=== PATIENT | male | born 1965 | race Caucasian/White ===

== ENCOUNTER 2018-06-11 22:15 | Observation (INO) ==
[2018-06-11 23:05] LABS: Basophils # 0.1 K/mm3 (0-0.2); Basophils % 0.6 % (0.1-2.0); Eosinophils # 0.2 K/mm3 (0.0-0.4); Eosinophils % 2.1 % (0.1-12.0); Hematocrit 47.3 % (42.0-52.0); Hemoglobin 15.7 g/dL (14.1-18.0); Lymphocytes # 2.6 K/mm3 (0.7-4.5); Lymphocytes % 28.3 K/mm3 (10-50); Mean Corpuscular HGB Conc 33.3 g/dL (31.8-35.4); Mean Corpuscular Hemoglobin 31.1 pg (27.0-31.2); Mean Corpuscular Volume 93.5 fl (80-94); Mean Platelet Volume 7.4 fl (7.4-10.4); Monocytes # 0.7 K/mm3 (0.1-1.0); Monocytes % 7.1 % (1.7-9.3); Neutrophils # 5.7 K/mm3 (1.8-7.8); Platelet Count 316 K/mm3 (142-424); Red Blood Count 5.06 M/mm3 (4.60-6.20); Red Cell Distribution Width 12.8 % (11.5-17.5); White Blood Count 9.1 K/mm3 (4.8-10.8)
[2018-06-11 23:16] LABS: Albumin Level 3.9 gm/dL (3.4-5.0); Bilirubin,Total 0.6 mg/dL (0.2-1.0); Calcium 8.8 mg/dL (8.5-10.1); Globulin 3.9 gm/dl (1.3-3.2); Total Protein,Serum 7.8 gm/dL (6.4-8.2)
--- NOTE | 2018-06-12 01:02 | Emergency Department Note ---
ED Disposition Clinical Impression: Tobacco use Abscess of skin or subcutaneous tissue Qualifiers: Site of cutaneous abscess: extremity Site of cutaneous abscess of extremity: upper extremity Laterality: left Qualified Code(s): L02.414 - Cutaneous abscess of left upper limb Diabetes mellitus Qualifiers: Diabetes mellitus type: type 1 Diabetes mellitus complication status: with unspecified complications Qualified Code(s): E10.8 - Type 1 diabetes mellitus with unspecified complications Hypothyroidism Qualifiers: Hypothyroidism type: acquired Qualified Code(s): E03.9 - Hypothyroidism, unspecified Disposition: Admitted as Observation Condition on Discharge: Good - Critical Care Critical Care Time: No Attestation: On 06/11/18, the high probability of a clinically significant, sudden or life threatening deterioration of the following system(s) required my full and direct attention, intervention and personal management. The time I documented below is in addition to time spent performing reported procedures but includes the following listed in this critical care notation. Medical Decision Making - Medical Records Medical records reviewed: Yes: I reviewed the patient's medical records. - Rj Inquiry Pt receiving controlled substance: No Vital Signs: 06/11/18 22:17 06/12/18 00:06 Temperature 98.5 F 98.5 F Temperature Source Oral Oral Pulse Rate [Right Brachial] 96 H 89 Respiratory Rate 14 18 Blood Pressure [Right Arm] 188/101 163/89 Blood Pressure Mean [Right Arm] 130 113 Blood Pressure Source [Right Arm] Automatic Cuff Blood Pressure Position [Right Arm] Supine 02 Sat by Pulse Oximetry 98 97 Oxygen Delivery Method Room Air - Lab Data Lab results reviewed: Yes: I reviewed the patient's lab results. Lab Results 06/11/18 22:45: WBC 9.1, RBC 5.06, Hgb 15.7, Hct 47.3, MCV 93.5, MCH 31.1, MCHC 33.3, RDW 12.8, Plt Count 316, MPV 7.4, Neut % (Auto) 62.0, Lymph % (Auto) 28.3, [place] % (Auto) 7.1, Eos % (Auto) 2.1, Baso % (Auto) 0.6, Neut # (Auto) 5.7, Lymph # (Auto) 2.6, [place] # (Auto) 0.7, Eos # (Auto) 0.2, Baso # (Auto) 0.1 06/11/18 22:45: Sodium 140, Potassium 4.0, Chloride 103, Carbon Dioxide 32, Anion Gap 9.0, BUN 12, Creatinine 1.03, Estimated Creat Clear 132, Estimated GFR 76, Est GFR ( Amer) 92, Glucose 313 H, Calcium 8.8, Total Bilirubin 0.6, AST 17, ALT 46, Alkaline Phosphatase 118 H, Total Protein 7.8, Albumin 3.9, Globulin 3.9 H, Albumin/Globulin Ratio 1.0 L 06/11/18 22:45: Lactate 1.7 06/11/18 22:45: ESR 17 Result diagrams: 06/11/18 22:45 06/11/18 22:45 Orders (Tests/Meds): ED MEDICATIONS Generic Name Dose Route Start Last Admin Trade Name Lorraine PRN Reason Stop Dose Admin Vancomycin HCl 2,000 mg/ 250 mls @ 125 mls/hr 06/12/18 00:41 06/12/18 00:53 Sodium Chloride IV 06/12/18 02:40 125 mls/hr ONCE ONE Administration Vancomycin HCl 1,500 mg/ 250 mls @ 125 mls/hr 06/12/18 12:45 Sodium Chloride IV 06/17/18 12:44 Q12H MARJORIE Miscellaneous 1 each 06/12/18 00:45 06/12/18 00:42 Vancomycin Consult Request * 07/12/18 00:44 1 each CONSULT PHARMACY MARJORIE Administration ORDERS Category Date Time Status Hemoglobin A1C Stat Lab 06/12/18 00:00 Received Blood Culture Stat Micro 06/11/18 22:57 Ordered Skin/Abscess/FB HPI - General Chief complaint: Skin/Abscess/Foreign Body Stated complaint: spot on arm Time Seen by Provider: 06/11/18 23:30 Mode of Arrival: Ambulatory Source of Information: Patient, Spouse, Medical Record Limitations: No Limitations Description of Symptoms (Recalled from ER Triage Doc. by RN): REPORTS A "SPOT" ON HIS LEFT FOREARM THAT DRAINED INFECTION A COUPLE WEEKS AGO. REPORTS A COUPLE DAYS AGO A NEW SPOT POPPED UP BELOW IT AND IT HAS PROGRESSIVLY GOTTEN MORE SWOLLEN, WITH REDNESS AROUND IT. REPORTS THIS PLACE HAS NOT DRAINED. REPRTS HE HAS BEEN SQUEEZING BUT NO DRAINIAGE - History of Present Illness HPI narrative: progressive swelling and tenderness to skin lesion lt forearm with no drainage but had fever and chills - he is diabetic and no hx of mrsa - MD complaint: abscess/boil Onset (ago): day(s) Tetanus up to date: unsure Location: LUE Severity: moderate Associated symptoms: fever, chills Treatments prior to arrival: attempted to drain pus at home - Related Data Home Medications Medication Instructions Recorded Confirmed gabapentin 400 mg capsule 600 mg PO TID cap 12/16/17 06/11/18 insulin glargine (U-100) 100 20 unit SUB-Q QHS ml 12/16/17 06/11/18 unit/mL (3 mL) subcutaneous pen levothyroxine 25 mcg tablet 25 mcg PO DAILY tab 12/16/17 06/11/18 losartan 50 mg tablet 50 mg PO DAILY tab 12/16/17 06/11/18 metformin ER 1,000 mg 1,000 mg PO BID tab 12/16/17 06/11/18 tablet,extended release 24hr sitagliptin 100 mg tablet 100 mg PO DAILY tab 12/16/17 06/11/18 Omeprazole [Omeprazole 40mg 40 mg PO DAILY 06/11/18 06/11/18 Capsule] Allergies Allergy/AdvReac Type Severity Reaction Status Date / Time No Known Allergies Allergy Verified 12/16/17 11:33 [facility] History I have reviewed the patient's past medical history: Yes Medical History: Reports:: Diabetes Mellitus Type 2, Gastroesophageal Reflux Disease(GERD), Hyperlipidemia, Hypertension Other Medical History: Reports: Thyroid Disease Laterality Cases: Right: Carpal Tunnel Release Other Surgeries: Yes: Colonoscopy Amputation: No Fractures: No - Social History Smoking Status: Current every day smoker Tobacco Type: cigarettes Alcohol Intake: never Substance Use Type: denies use - Psychiatric History Expresses thoughts of harming self/others: None Suicide Plan Description: No Plan Family Hx:: Cancer, Diabetes ROS Obtained: Yes All systems reviewed & no additional complaints - Constitutional Constitutional: Reports chills, Reports fever(s) - Eyes Eyes: Denies change in vision - ENT Ears, Nose, Mouth, and Throat: Denies sore throat - Cardiovascular Cardiovascular: Denies chest pain - Respiratory Respiratory: No cough - Gastrointestinal Gastrointestingal: Denies: abdominal pain - Genitourinary Male Genitourinary: Denies hematuria - Musculoskeletal Musculoskeletal: Denies joint pain, Denies joint swelling - Integumentary/Breasts Skin/Breast: Reports boil - Neurologic Neurologic: Denies seizure-like activity Physical Exam - General General appearance: alert, in no apparent distress - Head Head exam: normocephalic - Eye Eye exam: Present: PERRL, EOMI. Absent: scleral icterus - ENT ENT exam: Present: mucous membranes dry - Neck Neck exam: Present: trachea midline - Respiratory Respiratory exam: Absent: respiratory distress - Cardiovascular Cardiovascular exam: Present: regular rate - Abdominal Exam Abdominal exam: Present: soft - Expanded Upper Extremity Exam Left Forearm/Wrist exam: Present: tenderness, swelling, erythema - Neurological Exam Neurological exam: Present: alert, oriented X3, CN II-XII intact - Psychiatric Psychiatric exam: Present: normal affect - Skin Skin exam: Present: rash, other (cellulitis lt upper ext with neurovascular ok but no drainage and has tenderness and spreading induration )
[2018-06-12 06:44] LABS: Basophils # 0.1 K/mm3 (0-0.2); Basophils % 0.6 % (0.1-2.0); Eosinophils # 0.2 K/mm3 (0.0-0.4); Eosinophils % 2.3 % (0.1-12.0); Hematocrit 41.5 % (42.0-52.0); Hemoglobin 14.2 g/dL (14.1-18.0); Lymphocytes # 2.7 K/mm3 (0.7-4.5); Lymphocytes % 28.2 K/mm3 (10-50); Mean Corpuscular HGB Conc 34.1 g/dL (31.8-35.4); Mean Corpuscular Hemoglobin 31.5 pg (27.0-31.2); Mean Corpuscular Volume 92.2 fl (80-94); Mean Platelet Volume 7.6 fl (7.4-10.4); Monocytes # 0.6 K/mm3 (0.1-1.0); Monocytes % 6.3 % (1.7-9.3); Neutrophils % 62.6 % (37.0-80.0); Platelet Count 287 K/mm3 (142-424); Red Cell Distribution Width 12.9 % (11.5-17.5); White Blood Count 9.6 K/mm3 (4.8-10.8)
[2018-06-12 06:52] LABS: Anion Gap 9.8 mEq/L (5-15); Calcium 8.2 mg/dL (8.5-10.1); Potassium 3.8 mmoL/L (3.5-5.1)
[2018-06-12 07:14] LABS: Chol/HDL Ratio 4.2 (1-3.5)
--- NOTE | 2018-06-12 07:30 | Pharmacy Consult Notes ---
[facility] Pharmacy VTE Monitoring - Patient Demographics Admission date: 06/12/18 Report Date: 06/12/18 Time: 07:30 Allergies/Adverse Reactions: Patient Allergies No Known Allergies Allergy (Verified 12/16/17 11:33) Height: 1.78 m Weight: 112.689 kg Patient Problems: Current Active Problems Abscess of skin or subcutaneous tissue (Acute) Tobacco use (Acute) Diabetes mellitus (Acute) Hypothyroidism (Acute) - VTE Risk Labs: VTE Related Lab Results Hgb 14.2 g/dL (14.1-18.0) 06/12/18 06:16 Hct 41.5 % (42.0-52.0) L 06/12/18 06:16 Plt Count 287 K/mm3 (142-424) 06/12/18 06:16 BUN 12 mg/dL (7-18) 06/12/18 06:16 Creatinine 0.78 mg/dL (0.70-1.30) D 06/12/18 06:16 Estimated Creat Clear 177 mL/min (0-300) 06/12/18 06:16 Was VTE Risk Assessment Performed: Yes VTE Score: 3 VTE Risk Level: Low Risk - Prophylaxis VTE Prophylaxis Ordered?: Yes Types of VTE Prophylaxis: TEDS Knee High Location of Applied Device: Bilateral Lower Extremeties - VTE Diagnosis Confirmed Treatment or plan recommended: Continue Current Treatment
--- NOTE | 2018-06-12 09:15 | History & Physical Report ---
*Admission Date: 06/12/18 *Chief complaint: abcess *History of present illness: 53-year-old male reported to the ER with complaints of an area on left forearm that was draining a few weeks ago but cleared up now a new spot opened up just below and is progressively gotten worse with swelling in a black area in the middle with redness that extends down the arm. Patient states the area has not drained patient states he has tried to squeeze it but cannot get anything out of it. Patient admitted for IV antibiotics with PICC line placement due to the inability to obtain a culture we will treat with vancomycin. [facility] History I have reviewed the patient's past medical history: Yes Medical History: Reports:: Diabetes Mellitus Type 2, Gastroesophageal Reflux Disease(GERD), Hyperlipidemia, Hypertension Denies:: Cancer, MRSA Other Medical History: Reports: Thyroid Disease Laterality Cases: Right: Carpal Tunnel Release Other Surgeries: Yes: Colonoscopy Amputation: No Fractures: Yes - *Social History Educational Level: Attended College Smoking Status: Current every day smoker Tobacco Type: cigarettes # Packs/Day (cigarettes): 1 Alcohol Intake: former Alcohol Intake Frequency:: holidays/special occasions only Substance Use Type: denies use Occupational Status: employed Housing: house Household Members: spouse, children - Psychiatric History Expresses thoughts of harming self/others: None Suicide Plan Description: No Plan *Family Hx:: Cancer, Diabetes, Hypertension Review of Systems - Review of Systems Review of systems:: pertinent systems reviewed and negative unless documented below - Constitutional Denies headache(s) - Eyes Denies change in vision - ENT Denies change in voice - *Cardiovascular Denies chest pain with activity - *Respiratory Denies chest congestion - *Gastrointestinal Denies bloating - *Genitourinary Denies urinary urgency - *Musculoskeletal Denies stiffness - Integumentary/Breasts Reports skin ulcer, Reports other - *Neurologic Denies seizure-like activity - Psychiatric Denies anxiety - Endocrine Denies excessive sweating - Hematologic/Lymphatic Denies enlarged lymph nodes - Allergic/Immunologic Denies lip swelling Meds Home Medications Medication Instructions Recorded Confirmed Type insulin glargine (U-100) 100 24 unit SQ HS ml 12/16/17 06/12/18 History unit/mL (3 mL) subcutaneous pen levothyroxine 25 mcg tablet 25 mcg PO DAILY tab 12/16/17 06/12/18 History losartan 50 mg tablet 50 mg PO DAILY tab 12/16/17 06/12/18 History sitagliptin 100 mg tablet 100 mg PO DAILY tab 12/16/17 06/12/18 History Omeprazole [Omeprazole 40mg 40 mg PO DAILY 06/11/18 06/12/18 History Capsule] Aspirin [Children's Aspirin] 81 mg PO DAILY 06/12/18 06/12/18 History Atorvastatin Calcium [Atorvastatin 40 mg PO HS 06/12/18 06/12/18 History 40mg Tab] Gabapentin [Neurontin 600mg 600 mg PO BID 06/12/18 06/12/18 History tablet] Metformin HCl [Glucophage] 1,000 mg PO BID 06/12/18 06/12/18 History Allergies Allergy/AdvReac Type Severity Reaction Status Date / Time No Known Allergies Allergy Verified 12/16/17 11:33 Exam Vital signs and Labs for Last 24 Hours: Temp Pulse Resp BP Pulse Ox 97.3 F L 80 16 179/95 95 06/12/18 08:00 06/12/18 08:00 06/12/18 08:00 06/12/18 08:00 06/12/18 08:00 Laboratory Results - last 24 hr 06/11/18 22:45: WBC 9.1, RBC 5.06, Hgb 15.7, Hct 47.3, MCV 93.5, MCH 31.1, MCHC 33.3, RDW 12.8, Plt Count 316, MPV 7.4, Neut % (Auto) 62.0, Lymph % (Auto) 28.3, [place] % (Auto) 7.1, Eos % (Auto) 2.1, Baso % (Auto) 0.6, Neut # (Auto) 5.7, Lymph # (Auto) 2.6, [place] # (Auto) 0.7, Eos # (Auto) 0.2, Baso # (Auto) 0.1 06/11/18 22:45: Sodium 140, Potassium 4.0, Chloride 103, Carbon Dioxide 32, Anion Gap 9.0, BUN 12, Creatinine 1.03, Estimated Creat Clear 132, Estimated GFR 76, Est GFR ( Amer) 92, Glucose 313 H, Calcium 8.8, Total Bilirubin 0.6, AST 17, ALT 46, Alkaline Phosphatase 118 H, Total Protein 7.8, Albumin 3.9, Globulin 3.9 H, Albumin/Globulin Ratio 1.0 L 06/11/18 22:45: Lactate 1.7 06/11/18 22:45: ESR 17 06/12/18 00:00: Hemoglobin A1c 8.6 H 06/12/18 06:03: POC Glucose 185 H 06/12/18 06:16: WBC 9.6, RBC 4.50 L, Hgb 14.2, Hct 41.5 L, MCV 92.2, MCH 31.5 H, MCHC 34.1, RDW 12.9, Plt Count 287, MPV 7.6, Neut % (Auto) 62.6, Lymph % (Auto) 28.2, [place] % (Auto) 6.3, Eos % (Auto) 2.3, Baso % (Auto) 0.6, Neut # (Auto) 6.0, Lymph # (Auto) 2.7, [place] # (Auto) 0.6, Eos # (Auto) 0.2, Baso # (Auto) 0.1 06/12/18 06:16: Sodium 141, Potassium 3.8, Chloride 106, Carbon Dioxide 29, Anion Gap 9.8, BUN 12, Creatinine 0.78 D, Estimated Creat Clear 177, Estimated GFR 105, Est GFR ( Amer) 126 D, Glucose 187 H D, Calcium 8.2 L 06/12/18 06:16: Magnesium 1.5, Triglycerides 128, Cholesterol 92 L, LDL Cholesterol 44, VLDL Cholesterol 26, HDL Cholesterol 22 L, Cholesterol/HDL Ratio 4.2 H I & O for Last 24 hours: Intake & Output 06/09/18 06/10/18 06/11/18 06/12/18 11:59 11:59 11:59 11:59 Intake Total 1108 / 1108 Balance 1108 / 1108 Weight 248 lb 7 oz - *Routine HEENT Exam Head: Present: normocephalic Eye: Present: PERRL ENT: Present: mucous membranes moist - *Routine Neck Exam Present: supple. Absent: lymphadenopathy - *Routine Respiratory Exam Present: CTA bilaterally - *Routine Cardiovascular Exam Present: RRR - *Routine Abdominal Exam Present: soft, normoactive bowel sounds. Absent: tenderness - *Routine Extremities Exam Absent: cyanosis, clubbing, edema - *Routine Skin Exam Present: warm. Absent: rash - *Routine Neurological Exam Present: alert, oriented X3 - Detailed Skin Exam left arm Type of lesion/wound: Present: abscess Body image: 1 - red area the size of a golf ball with scab area in middle Assessment and Plan - Assessment and plan all Dx Assessment and Plan for all problems:: Rounded with Dr. Rojas all orders per Bob PICC line placement
--- NOTE | 2018-06-12 09:46 | Pharmacy Consult Notes ---
- Pharmacy Consult Date: 06/12/18 Time: 09:44 Referring provider: DR. MOE Reason for Consult:: VANCOMYCIN DOSING Allergies and ADEs:: Allergies Allergy/AdvReac Type Severity Reaction Status Date / Time No Known Allergies Allergy Verified 12/16/17 11:33 Home Medications:: Home Medications Medication Instructions Recorded Confirmed Type insulin glargine (U-100) 100 24 unit SQ HS ml 12/16/17 06/12/18 History unit/mL (3 mL) subcutaneous pen levothyroxine 25 mcg tablet 25 mcg PO DAILY tab 12/16/17 06/12/18 History losartan 50 mg tablet 50 mg PO DAILY tab 12/16/17 06/12/18 History sitagliptin 100 mg tablet 100 mg PO DAILY tab 12/16/17 06/12/18 History Omeprazole [Omeprazole 40mg 40 mg PO DAILY 06/11/18 06/12/18 History Capsule] Aspirin [Children's Aspirin] 81 mg PO DAILY 06/12/18 06/12/18 History Atorvastatin Calcium [Atorvastatin 40 mg PO HS 06/12/18 06/12/18 History 40mg Tab] Gabapentin [Neurontin 600mg 600 mg PO BID 06/12/18 06/12/18 History tablet] Metformin HCl [Glucophage] 1,000 mg PO BID 06/12/18 06/12/18 History Height: 1.78 m Weight: 112.689 kg Laboratory Results:: Laboratory Results - last 24 hr 06/11/18 22:45: WBC 9.1, RBC 5.06, Hgb 15.7, Hct 47.3, MCV 93.5, MCH 31.1, MCHC 33.3, RDW 12.8, Plt Count 316, MPV 7.4, Neut % (Auto) 62.0, Lymph % (Auto) 28.3, [place] % (Auto) 7.1, Eos % (Auto) 2.1, Baso % (Auto) 0.6, Neut # (Auto) 5.7, Lymph # (Auto) 2.6, [place] # (Auto) 0.7, Eos # (Auto) 0.2, Baso # (Auto) 0.1 06/11/18 22:45: Sodium 140, Potassium 4.0, Chloride 103, Carbon Dioxide 32, Anion Gap 9.0, BUN 12, Creatinine 1.03, Estimated Creat Clear 132, Estimated GFR 76, Est GFR ( Amer) 92, Glucose 313 H, Calcium 8.8, Total Bilirubin 0.6, AST 17, ALT 46, Alkaline Phosphatase 118 H, Total Protein 7.8, Albumin 3.9, Globulin 3.9 H, Albumin/Globulin Ratio 1.0 L 06/11/18 22:45: Lactate 1.7 06/11/18 22:45: ESR 17 06/12/18 00:00: Hemoglobin A1c 8.6 H 06/12/18 06:03: POC Glucose 185 H 06/12/18 06:16: WBC 9.6, RBC 4.50 L, Hgb 14.2, Hct 41.5 L, MCV 92.2, MCH 31.5 H, MCHC 34.1, RDW 12.9, Plt Count 287, MPV 7.6, Neut % (Auto) 62.6, Lymph % (Auto) 28.2, [place] % (Auto) 6.3, Eos % (Auto) 2.3, Baso % (Auto) 0.6, Neut # (Auto) 6.0, Lymph # (Auto) 2.7, [place] # (Auto) 0.6, Eos # (Auto) 0.2, Baso # (Auto) 0.1 06/12/18 06:16: Sodium 141, Potassium 3.8, Chloride 106, Carbon Dioxide 29, Anion Gap 9.8, BUN 12, Creatinine 0.78 D, Estimated Creat Clear 177, Estimated GFR 105, Est GFR ( Amer) 126 D, Glucose 187 H D, Calcium 8.2 L 06/12/18 06:16: Magnesium 1.5, Triglycerides 128, Cholesterol 92 L, LDL Cholesterol 44, VLDL Cholesterol 26, HDL Cholesterol 22 L, Cholesterol/HDL Ratio 4.2 H Medical History: Reports:: Diabetes Mellitus Type 2, Gastroesophageal Reflux Disease(GERD), Hyperlipidemia, Hypertension Denies:: Cancer, MRSA Assessment and Plan - Assessment and plan all Dx Assessment and Plan for all problems:: BASED ON PATIENT FACTORS, RECOMMEND VANCOMYCIN 2,250MG IV EVERY 12 HOURS. [facility] WILL OBTAIN TROUGH LEVEL PRIOR TO FOURTH DOSE AND WILL ADJUST DOSE APPROPRIATE AT THAT TIME. -HEMAL LONG, TONID
--- NOTE | 2018-06-13 11:41 | Discharge Summary ---
General - General Admission date:: 06/12/18 Discharge date: 06/13/18 HPI HPI: 53-year-old male reported to the ER with complaints of an area on left forearm that was draining a few weeks ago but cleared up now a new spot opened up just below and is progressively gotten worse with swelling in a black area in the middle with redness that extends down the arm. Patient states the area has not drained patient states he has tried to squeeze it but cannot get anything out of it. Patient admitted for IV antibiotics with PICC line placement due to the inability to obtain a culture we will treat with vancomycin. Hospital Course Hospital Course: pt has did well with iv abx and infection has responded and will continue treatment as op -pt will need 10 day course and will follow phar recomendations and have placed pic line to facilitate op care Objective Vital signs: Temp Pulse Resp BP Pulse Ox 99.2 F 88 20 179/91 95 06/13/18 08:00 06/13/18 08:00 06/13/18 08:00 06/13/18 08:00 06/13/18 08:00 no acute distress, obese - *Routine HEENT Exam Head: Present: normocephalic, atraumatic Eye: Present: EOMI, PERRL ENT: Present: mucous membranes dry - *Routine Neck Exam Absent: JVD - *Routine Respiratory Exam Present: CTA bilaterally - *Routine Cardiovascular Exam Present: RRR - *Routine Abdominal Exam Present: soft - *Routine Extremities Exam Present: full ROM - *Routine Skin Exam Comments: resolving infection lt upper ext - *Routine Neurological Exam Present: alert, oriented X3, CN II-XII intact - Routine Psychiatric Exam Present: normal affect Results Labs on day of discharge: Labs from last 24 hours 06/12/18 06/12/18 20:38 17:16 POC Glucose 237 H 181 H DS: Diagnosis - Discharge Diagnosis (1) Abscess of skin or subcutaneous tissue Status: Acute (2) Diabetes mellitus Status: Acute (3) Hypothyroidism Status: Acute (4) Tobacco use Status: Acute Discharge Plan - Patient Discharge Instructions ACTIVITY: Continue current activity DIET: continue same diet - Follow up Plan Disposition: Home, Self-Long-Term Medications: Home Medications Medication Instructions Recorded Confirmed Type insulin glargine (U-100) 100 30 unit SQ HS ml 12/16/17 06/12/18 History unit/mL (3 mL) subcutaneous pen levothyroxine 25 mcg tablet 25 mcg PO DAILY tab 12/16/17 06/12/18 History losartan 50 mg tablet 50 mg PO DAILY tab 12/16/17 06/12/18 History sitagliptin 100 mg tablet 100 mg PO DAILY tab 12/16/17 06/12/18 History Omeprazole [Omeprazole 40mg 40 mg PO DAILY 06/11/18 06/12/18 History Capsule] Aspirin [Children's Aspirin] 81 mg PO DAILY 06/12/18 06/12/18 History Atorvastatin Calcium [Atorvastatin 30 mg PO HS 06/12/18 06/12/18 History 40mg Tab] Gabapentin [Neurontin 600mg 600 mg PO BID 06/12/18 06/12/18 History tablet] Metformin HCl [Glucophage] 1,000 mg PO BID 06/12/18 06/12/18 History Prescriptions/Medication Reconciliation: New DAPTOmycin [Cubicin 500mg vial] 500 mg IV Q24H vial Gabapentin [Neurontin 600mg tablet] 600 mg PO TID tablet Metformin HCl [Metformin 500mg Tablet] 1,000 mg PO BIDWM tablet Nicotine [Nicoderm 21mg/24hr patch] 21 mg TD DAILYP PRN #30 patch.td24 PRN Reason: Nicotine Cravings Mupirocin [Bactroban 2% Ointment 22gm tube] 1 applicatio TP BID #1 tube Continue insulin glargine (U-100) 100 unit/mL (3 mL) subcutaneous pen 30 unit SQ HS ml losartan 50 mg tablet 50 mg PO DAILY tab sitagliptin 100 mg tablet 100 mg PO DAILY tab levothyroxine 25 mcg tablet 25 mcg PO DAILY tab Aspirin [Children's Aspirin] 81 mg PO DAILY Gabapentin [Neurontin 600mg tablet] 600 mg PO BID Atorvastatin Calcium [Atorvastatin 40mg Tab] 30 mg PO HS Omeprazole [Omeprazole 40mg Capsule] 40 mg PO DAILY Metformin HCl [Glucophage] 1,000 mg PO BID
== END 2018-06-13 12:04 | disposition home or self-care (01) ==
LOC: ER 22:15 → 2ND 22:15
PROVIDERS: ADMIT Emergency Medicine; ATTEND Emergency Medicine

== ENCOUNTER → 2018-06-14 10:35 | Outpatient (CLI) | payer MEDICAID, SELFPAY ==
[2018-06-14 10:35] VITALS: BP 179/93; PULSE 87; RESP 18; TEMP 36.8; O2SAT 99
[2018-06-14 10:52] VITALS: BP 192/107; PULSE 91; RESP 18; TEMP 36.8; O2SAT 99; BMI 35.6
== END ==
PROVIDERS: PCP Physician Assistant; Visit Provider Emergency Medicine
DX: L02.414 Cutaneous abscess of left upper limb (principal)
CPT/HCPCS: 96365; J0878

== ENCOUNTER → 2018-06-15 14:08 | Outpatient (CLI) | payer MEDICAID, SELFPAY ==
[2018-06-15 14:18] VITALS: BP 179/105; PULSE 92; RESP 18; TEMP 36.8; O2SAT 99; BMI 35.6
[2018-06-15 15:00] VITALS: BP 179/105; PULSE 91; RESP 18; TEMP 36.8; O2SAT 98
== END ==
PROVIDERS: PCP Physician Assistant; Visit Provider Emergency Medicine
DX: L02.414 Cutaneous abscess of left upper limb (principal)
CPT/HCPCS: 96365; J0878

== ENCOUNTER 2018-06-16 16:00 | Outpatient (CLI) | payer MEDICAID, SELFPAY ==
[2018-06-16 16:20] VITALS: BP 192/99; PULSE 74; RESP 18; TEMP 36.7; O2SAT 98
[2018-06-16 16:50] VITALS: BP 187/97; PULSE 76; RESP 18; O2SAT 96
[2018-06-16 17:10] VITALS: BP 189/94; PULSE 78; RESP 18; O2SAT 97
== END 2018-06-16 17:15 | disposition home or self-care (01) ==
LOC: INF 16:16
PROVIDERS: PCP Physician Assistant; Visit Provider Emergency Medicine
DX: L02.414 Cutaneous abscess of left upper limb (principal)
CPT/HCPCS: 96365; J0878

== ENCOUNTER 2018-06-17 15:30 | Outpatient (CLI) | payer MEDICAID, SELFPAY ==
[2018-06-17 15:33] VITALS: BP 151/86; PULSE 68; RESP 20; TEMP 37; O2SAT 96
[2018-06-17 16:25] VITALS: BP 150/74; PULSE 72; RESP 20; TEMP 36.9; O2SAT 96
== END 2018-06-17 16:29 | disposition home or self-care (01) ==
LOC: INF 15:30
PROVIDERS: PCP Emergency Medicine; Visit Provider Emergency Medicine
DX: L02.414 Cutaneous abscess of left upper limb (principal)
CPT/HCPCS: 96365; J0878

== ENCOUNTER → 2018-06-18 16:51 | Outpatient (CLI) | payer MEDICAID, SELFPAY ==
[2018-06-18 16:51] VITALS: BP 164/97; PULSE 86; RESP 15; TEMP 36.6; O2SAT 97
[2018-06-18 17:54] VITALS: BP 168/98; PULSE 64; RESP 14; TEMP 36.6; O2SAT 98
== END ==
PROVIDERS: PCP Emergency Medicine; Visit Provider Emergency Medicine
DX: L02.414 Cutaneous abscess of left upper limb (principal)
CPT/HCPCS: 96365; J0878

== ENCOUNTER 2018-06-19 15:25 | Outpatient (CLI) | payer MEDICAID, SELFPAY ==
[2018-06-19 15:50] VITALS: BP 151/81; PULSE 76; RESP 18; TEMP 36.6; O2SAT 99
[2018-06-19 16:20] VITALS: BP 154/79; PULSE 71; RESP 18; O2SAT 98
[2018-06-19 16:30] VITALS: BP 156/84; PULSE 79; RESP 18; O2SAT 97
== END 2018-06-19 16:40 | disposition home or self-care (01) ==
LOC: INF 15:34
PROVIDERS: PCP Emergency Medicine; Visit Provider Emergency Medicine
DX: L02.414 Cutaneous abscess of left upper limb (principal)
CPT/HCPCS: 96365; J0878

== ENCOUNTER 2018-06-20 16:00 | Outpatient (CLI) | payer MEDICAID, SELFPAY ==
[2018-06-20 16:00] VITALS: BP 137/75; PULSE 95; RESP 20; TEMP 36.7; O2SAT 96
[2018-06-20 16:30] VITALS: BP 137/80; PULSE 66; RESP 20; TEMP 36.9; O2SAT 98
== END 2018-06-20 16:30 | disposition home or self-care (01) ==
LOC: INF 17:44
PROVIDERS: PCP Emergency Medicine; Visit Provider Emergency Medicine
DX: L02.414 Cutaneous abscess of left upper limb (principal)
CPT/HCPCS: 96365; J0878

== ENCOUNTER → 2018-06-21 11:19 | Outpatient (CLI) | payer MEDICAID, SELFPAY ==
[2018-06-21 11:42] VITALS: BP 143/84; PULSE 97; RESP 18; TEMP 36.9; O2SAT 96; BMI 34.4
[2018-06-21 12:30] VITALS: BP 144/86; PULSE 88; RESP 18; TEMP 36.4; O2SAT 97
== END ==
PROVIDERS: PCP Emergency Medicine; Visit Provider Emergency Medicine
DX: L02.414 Cutaneous abscess of left upper limb (principal)
CPT/HCPCS: 96365; J0878

== ENCOUNTER 2018-06-23 12:00 | Outpatient (CLI) | payer MEDICAID, SELFPAY | END 2018-06-23 12:25 | disposition home or self-care (01) | LOC: INF 12:09 | PROVIDERS: PCP Emergency Medicine; Visit Provider Emergency Medicine | DX: Z45.2 Encounter for adjustment and management of vascular access device (principal); L02.91 Cutaneous abscess, unspecified | CPT/HCPCS: G0463 ==

== ENCOUNTER 2018-06-30 15:55 | Observation (INO) ==
--- NOTE | 2018-06-30 16:44 | Emergency Department Note ---
[facility] [place] Clinical Impression: Facial cellulitis, Abscess of chin Diabetes mellitus, type 2 Qualifiers: Diabetes mellitus mcfp insulin use: with intermediate project manager use Diabetes mellitus complication status: with skin complications Diabetes mellitus complication detail: with other skin complication Qualified Code(s): E11.628 - Type 2 diabetes mellitus with other skin complications; Z79.4 - intermediate project manager (current) use of insulin Hypertension Qualifiers: Hypertension type: unspecified Qualified Code(s): I10 - Essential (primary) hypertension Disposition: Admitted As Inpatient Condition on Discharge: Fair Time of Disposition: 17:20 (admit room 211) Medical Decision Making - Rj Inquiry Pt receiving controlled substance: No Vital Signs: 06/30/18 15:56 06/30/18 16:04 Temperature 98.1 F Temperature Source Temporal Artery Scan Pulse Rate [Left Radial] 106 H Respiratory Rate 16 Blood Pressure [Right Arm] 160/112 H 177/105 H Blood Pressure Mean [Right Arm] 128 129 Blood Pressure Source [Right Arm] Manual Cuff/ Auscultation Blood Pressure Position [Right Arm] Sitting 02 Sat by Pulse Oximetry 100 Oxygen Delivery Method Room Air Orders (Tests/Meds): ED MEDICATIONS Generic Name Dose Route Start Last Admin Trade Name Freq PRN Reason Stop Dose Admin Acetaminophen 650 mg 06/30/18 17:10 Acetaminophen 325mg Tab PO 07/30/18 17:09 Q4HP PRN As Needed for Fever or Pain Aspirin 81 mg 07/01/18 09:00 Aspirin 81mg Chewable Tablet PO 07/31/18 08:59 DAILY [facility] Atorvastatin Calcium 30 mg 06/30/18 21:00 Lipitor 40mg Tablet PO 07/30/18 20:59 HS [facility] Sodium Chloride 1,000 mls @ 50 mls/hr 06/30/18 17:10 Sod Chlor 0.9% 1000ml Bag IV 07/30/18 17:09 .Q20H [facility] Vancomycin HCl 1,750 mg/ 250 mls @ 125 mls/hr 06/30/18 17:10 Sodium Chloride IV 06/30/18 19:09 ONCE ONE Insulin Glargine 30 unit 06/30/18 21:00 Insulin Glargine 100 Units/Ml 3ml Flexpen SQ 07/30/18 20:59 HS [facility] Levothyroxine Sodium 25 mcg 07/01/18 09:00 Synthroid 25mcg (0.025mg) Tablet PO 07/31/18 08:59 DAILY [facility] Mupirocin gm 06/30/18 21:00 Bactroban 2% Ointment 22gm Tube TP 07/30/18 20:59 BID MARJORIE Nicotine 21 mg 06/30/18 17:10 Nicoderm 21mg/24hr Patch TD 07/30/18 17:09 DAILYP PRN Nicotine Cravings Non-Formulary Medication 50 mg 07/01/18 09:00 Losartan Potassium [Cozaar] PO 07/31/18 08:59 DAILY MARJ[facility]IE Non-Formulary Medication 1,000 mg 06/30/18 21:00 Metformin Hcl [Glucophage] PO 07/30/18 20:59 BID MARJORIE Non-Formulary Medication 40 mg 07/01/18 09:00 Omeprazole [Omeprazole 40mg Capsule] PO 07/31/18 08:59 DAILY [facility] Non-Formulary Medication 100 mg 07/01/18 09:00 Sitagliptin Phosphate [Januvia 100mg Tablet] PO 07/31/18 08:59 DAILY [facility] ORDERS Category Date Time Status Basic Metabolic Panel Stat Lab 06/30/18 17:00 Received Complete Blood Count Auto Diff Stat Lab 06/30/18 17:00 Received Lactic Acid Stat Lab 06/30/18 17:00 Received - Physician Consults Physician Consulted: Dr. Rojas, PCP Time: 16:40 Reason -: Pt condition Comment/Response: Spoke w/ Dr. Rojas. Familiar w/ pt. Discussed HPI, exam and pt's concerns and reluctance to get IM antibiotics w/ Rx for PO antibiotics and see Dr. Rojas tomorrow. Admit for observation. Restart IV Vanc. Ask Dr. Urias to place admission orders. He will see patient when he gets here later this evening. Additional Consult: Dr. Urias, ER MD Time: 16:55 Reason -: Admission Comment/Response: Discussed recent PMHx, HPI, exam, consult w/ Dr. Rojas. He is willing to place admission order for Bob knowing Bob will round and see pt this afternoon. - Reevaluation(s) Time: 16:35 Reevaluation #1: Discussed IM antibiotic and PO antibiotic prescription with follow up tomorrow. Pt hesitant and would rather have case discussed with Dr. Rojas given how significant left UE became so quickly. Pt is fearful he will need IV antibiotic and admission again. [facility] [place] - General Stated complaint: facial infection,pain Time Seen by Provider: 06/30/18 16:30 Mode of Arrival: Ambulatory Source of Information: Patient Limitations: No Limitations Description of Symptoms (Recalled from Triage Doc. by RN): left side facial swelling from area on chin HEENT Symptoms (Recalled from RN notes): Yes Resp Symptoms (Recalled from RN notes): No Skin Symptoms (Recalled from RN notes): Yes MS Symptoms (Recalled from RN notes): No Functional Status (Recalled from RN notes): wnl - History of Present Illness Provider Complaint: c/o "another abscess". Reporting started w/ abscess left FA approx 2 weeks ago. Worsened rapidly so was admitted and treated w/ IV vanc inpatient followed by PICC line and IV daptomycin outpatient. Just recently had PICC removed. Was shaving several days ago when he recalls "knicking" chin. Redness, swelling soon followed. Woke up this morning w/ swelling and pain radiating up to approx mid jawline. As day has progressed, feels pain "and sensation of swelling" radiating all the way up jawline into left ear. No known fever, aches, chills. Pt very nervous because of how fast the left arm got. Hx DM type II. FSBS today 240's when typically low to mid 100's. Hx of HTN. had been borderline 140's/90's. FU w/ Bob scheduled tomorrow to discuss if additional BP medication was going to be necessary. Pt afraid to wait until tomorrow. Pt feels BP even higher today d/t stress, fear and pain. Denies CP, vision change, SOA. Does have "mild pressure like frontal headache". - Related Data Home Medications Medication Instructions Recorded Confirmed insulin glargine (U-100) 100 30 unit SQ HS ml 12/16/17 06/20/18 unit/mL (3 mL) subcutaneous pen levothyroxine 25 mcg tablet 25 mcg PO DAILY tab 12/16/17 06/20/18 losartan 50 mg tablet 50 mg PO DAILY tab 12/16/17 06/20/18 sitagliptin 100 mg tablet 100 mg PO DAILY tab 12/16/17 06/20/18 Omeprazole [Omeprazole 40mg 40 mg PO DAILY 06/11/18 06/20/18 Capsule] Aspirin [Children's Aspirin] 81 mg PO DAILY 06/12/18 06/20/18 Atorvastatin Calcium [Atorvastatin 30 mg PO HS 06/12/18 06/20/18 40mg Tab] Gabapentin [Neurontin 600mg 600 mg PO BID 06/12/18 06/20/18 tablet] Metformin HCl [Glucophage] 1,000 mg PO BID 06/12/18 06/20/18 DAPTOmycin [Cubicin 500mg vial] 500 mg IV Q24H 06/16/18 06/20/18 Mupirocin [Bactroban 2% Ointment 1 applicatio TP BID 06/16/18 06/20/18 22gm tube] Previous Rx's Medication Instructions Recorded Nicotine [Nicoderm 21mg/24hr 21 mg TD DAILYP PRN #30 patch.td24 06/13/18 patch] Allergies Allergy/AdvReac Type Severity Reaction Status Date / Time No Known Allergies Allergy Verified 12/16/17 11:33 - Worker's Comp Is this a Worker's Comp case?: No [facility] History I have reviewed the patient's past medical history: Yes Medical History: Reports:: Diabetes Mellitus Type 2, Gastroesophageal Reflux Disease(GERD), Hyperlipidemia, Hypertension Denies:: Cancer, MRSA Other Medical History: Reports: Thyroid Disease Laterality Cases: Right: Carpal Tunnel Release Other Surgeries: Yes: Colonoscopy Amputation: No Fractures: Yes - Social History Educational Level: Completed College Smoking Status: Current every day smoker Tobacco Type: cigarettes # Packs/Day (cigarettes): 1 Alcohol Intake: never Alcohol Intake Frequency:: holidays/special occasions only Substance Use Type: denies use Occupational Status: employed Housing: house Household Members: spouse, children - Psychiatric History Expresses thoughts of harming self/others: None Suicide Plan Description: No Plan Family Hx:: Cancer, Diabetes, Hypertension ROS Obtained: Yes Systems reviewed as appropriate & no additional complaints - Constitutional Constitutional: Reports as per HPI, Denies poor appetite - Eyes Eyes: Reports as per HPI, Denies eye pain, Denies other (eye swelling) - ENT Ears, Nose, Mouth, and Throat: Denies difficulty swallowing, Denies ear discharge, Reports otalgia (left), Denies sinus pain, Denies sore throat - Cardiovascular Cardiovascular: Reports as per HPI, Denies irregular heart rhythm - Respiratory Respiratory: Yes as per HPI - Gastrointestinal Gastrointestingal: Denies: abdominal pain, nausea - Genitourinary Male Genitourinary: Denies difficulty urinating - Musculoskeletal Musculoskeletal: Denies joint pain, Denies limited range of motion - Integumentary/Breasts Skin/Breast: Reports as per HPI, Denies other (drainage) - Neurologic Neurologic: Reports as per HPI, Denies dizziness, Denies weakness Physical Exam - General General appearance: alert, in no apparent distress, obese - Head Head exam: normal inspection - Eye Eye exam: Present: normal appearance - ENT ENT exam: Present: normal oropharynx, mucous membranes moist, TM's normal bilaterally, normal external ear exam (visually popeye but tenderness w/ exam on left) - Expanded ENT Exam Nasal speculum exam: Bilateral: normal Mouth exam: Present: normal external inspection, tongue normal. Absent: lip swelling Teeth exam: Absent: gingival swelling Throat exam: Present: other (uvula midline and unremarkable). Absent: tonsillar erythema, tonsillomegaly, tonsillar exudate, muffled voice Comment: see skin for chin - Neck Neck exam: Present: full ROM, tenderness. Absent: lymphadenopathy - Chest Chest inspection: Present: symmetric chest wall rise - Respiratory Respiratory exam: Absent: respiratory distress - Cardiovascular Cardiovascular exam: Present: regular rate - Extremities Exam Extremities exam: Present: other (moving all extremities) - Neurological Exam Neurological exam: Present: alert, oriented X3 - Psychiatric Psychiatric exam: Present: normal affect (very pleasant) - Skin Skin exam: Present: warm, dry - Expanded Skin Exam Type of lesion: Present: abscess (approx 2cm x 2cm chin, firm, tender, scabbed center w/ no drainage) 1 - (square) cutaneous abscess 2 - mild swelling, marked tenderness along left mandible/anterior cervical region; no erythema noted (oval) - Lymphatic Lymphatic Findings: no adenopathy
[2018-06-30 17:20] LABS: Anion Gap 12.3 mEq/L (5-15); Calcium 9.4 mg/dL (8.5-10.1); Potassium 4.3 mmoL/L (3.5-5.1)
[2018-06-30 17:24] LABS: Basophils # 0.1 K/mm3 (0-0.2); Basophils % 0.5 % (0.1-2.0); Eosinophils # 0.2 K/mm3 (0.0-0.4); Eosinophils % 1.9 % (0.1-12.0); Hematocrit 50.9 % (42.0-52.0); Hemoglobin 16.9 g/dL (14.1-18.0); Lymphocytes # 2.7 K/mm3 (0.7-4.5); Lymphocytes % 22.1 K/mm3 (10-50); Mean Corpuscular HGB Conc 33.2 g/dL (31.8-35.4); Mean Corpuscular Hemoglobin 30.9 pg (27.0-31.2); Mean Corpuscular Volume 93.1 fl (80-94); Mean Platelet Volume 7.4 fl (7.4-10.4); Monocytes # 0.6 K/mm3 (0.1-1.0); Monocytes % 5.2 % (1.7-9.3); Neutrophils # 8.5 K/mm3 (1.8-7.8); Neutrophils % 70.5 % (37.0-80.0); Platelet Count 337 K/mm3 (142-424); Red Blood Count 5.46 M/mm3 (4.60-6.20); Red Cell Distribution Width 12.7 % (11.5-17.5)
--- NOTE | 2018-06-30 21:09 | History & Physical Report ---
*Admission Date: 06/30/18 *Chief complaint: facial infection *History of present illness: this wm who has iddm and recent had cellulitis of upper ext and had iv abx per pic line and has been off abx x 1 week presents to [facility] with spreading facial cellulitis and was admitted for iv abx [facility] History I have reviewed the patient's past medical history: Yes Medical History: Reports:: Diabetes Mellitus Type 2, Gastroesophageal Reflux Disease(GERD), Hyperlipidemia, Hypertension Denies:: Cancer, Diabetes Mellitus Type 1, MRSA Other Medical History: Reports: Thyroid Disease Laterality Cases: Right: Carpal Tunnel Release Other Surgeries: Yes: Colonoscopy Amputation: No Fractures: Yes - *Social History Educational Level: Completed College Smoking Status: Current every day smoker Tobacco Type: cigarettes # Packs/Day (cigarettes): 1 Alcohol Intake: never Alcohol Intake Frequency:: holidays/special occasions only Substance Use Type: denies use Occupational Status: employed Housing: house Household Members: spouse, children - Psychiatric History Expresses thoughts of harming self/others: None Suicide Plan Description: No Plan *Family Hx:: Cancer, Diabetes, Hypertension Review of Systems - Review of Systems Review of systems:: pertinent systems reviewed and negative unless documented below - Constitutional Denies fever(s) - Eyes Denies change in vision - ENT Denies sinus pressure - *Cardiovascular Denies chest pain at rest - *Respiratory Denies cough - *Gastrointestinal Denies abdominal pain - *Genitourinary Denies blood in urine - *Musculoskeletal Denies joint pain, Denies neck pain - Integumentary/Breasts Reports redness, Reports other (facial cellulitis ) - *Neurologic Denies dizziness, Denies weakness - Psychiatric Denies anxiety Meds Home Medications Medication Instructions Recorded Confirmed Type insulin glargine (U-100) 100 30 unit SQ HS ml 12/16/17 06/30/18 History unit/mL (3 mL) subcutaneous pen levothyroxine 25 mcg tablet 25 mcg PO DAILY tab 12/16/17 06/30/18 History losartan 50 mg tablet 50 mg PO DAILY tab 12/16/17 06/30/18 History sitagliptin 100 mg tablet 100 mg PO DAILY tab 12/16/17 06/30/18 History Omeprazole [Omeprazole 40mg 40 mg PO DAILY 06/11/18 06/30/18 History Capsule] Aspirin [Children's Aspirin] 81 mg PO DAILY 06/12/18 06/30/18 History Atorvastatin Calcium [Atorvastatin 30 mg PO HS 06/12/18 06/30/18 History 40mg Tab] Gabapentin [Neurontin 600mg 600 mg PO BID 06/12/18 06/30/18 History tablet] Metformin HCl [Glucophage] 1,000 mg PO BID 06/12/18 06/30/18 History Mupirocin [Bactroban 2% Ointment 1 applicatio TP BID 06/16/18 06/30/18 History 22gm tube] Allergies Allergy/AdvReac Type Severity Reaction Status Date / Time No Known Allergies Allergy Verified 12/16/17 11:33 Exam Vital signs and Labs for Last 24 Hours: Temp Pulse Resp BP Pulse Ox 98.6 F 101 H 18 120/80 93 L 06/30/18 19:56 06/30/18 19:56 06/30/18 19:56 06/30/18 19:56 06/30/18 19:56 Laboratory Results - last 24 hr 06/30/18 17:00: WBC 12.0 H, RBC 5.46, Hgb 16.9, Hct 50.9, MCV 93.1, MCH 30.9, MCHC 33.2, RDW 12.7, Plt Count 337, MPV 7.4, Neut % (Auto) 70.5, Lymph % (Auto) 22.1, Sutton % (Auto) 5.2, Eos % (Auto) 1.9, Baso % (Auto) 0.5, Neut # (Auto) 8.5 H, Lymph # (Auto) 2.7, Sutton # (Auto) 0.6, Eos # (Auto) 0.2, Baso # (Auto) 0.1 06/30/18 17:00: Sodium 137, Potassium 4.3, Chloride 99, Carbon Dioxide 30, Anion Gap 12.3, BUN 11, Creatinine 0.87, Estimated Creat Clear 158, Estimated GFR 92, Est GFR ( Amer) 111, Glucose 265 H, Calcium 9.4 06/30/18 17:00: Lactate 1.8 I & O for Last 24 hours: Intake & Output 06/28/18 06/29/18 06/30/18 07/01/18 11:59 11:59 11:59 11:59 Weight 248 lb - Constitutional no acute distress - *Routine HEENT Exam Head: Present: normocephalic Eye: Present: EOMI, PERRL ENT: Present: mucous membranes dry - *Routine Neck Exam Present: supple - *Routine Respiratory Exam Present: CTA bilaterally - *Routine Cardiovascular Exam Present: RRR. Absent: murmur - *Routine Abdominal Exam Present: soft - *Routine Extremities Exam Present: full ROM - *Routine Skin Exam Present: rash (cellulitis chin with induration and reddness lt facial and mandibular area ) - *Routine Neurological Exam Present: alert, oriented X3, CN II-XII intact - Routine Psychiatric Exam Present: normal affect Assessment and Plan (1) Diabetes mellitus Current visit: No Status: Acute Qualifiers: Diabetes mellitus type: type 1 Diabetes mellitus complication status: with unspecified complications Qualified Code(s): E10.8 - Type 1 diabetes mellitus with unspecified complications Category: Medical Code(s): E11.9 - Type 2 diabetes mellitus without complications (2) Facial cellulitis Current visit: Yes Status: Acute Category: Medical Code(s): L03.211 - Cellulitis of face
--- NOTE | 2018-07-01 07:47 | Pharmacy Consult Notes ---
[facility] Pharmacy VTE Monitoring - Patient Demographics Admission date: 06/30/18 Report Date: 07/01/18 Time: 07:47 Allergies/Adverse Reactions: Patient Allergies No Known Allergies Allergy (Verified 12/16/17 11:33) Height: 1.78 m Weight: 112.491 kg Patient Problems: Current Active Problems Facial cellulitis (Acute) Diabetes mellitus, type 2 (Acute) Abscess of chin (Acute) Hypertension (Acute) - VTE Risk Labs: VTE Related Lab Results Hgb 16.9 g/dL (14.1-18.0) 06/30/18 17:00 Hct 50.9 % (42.0-52.0) 06/30/18 17:00 Plt Count 337 K/mm3 (142-424) 06/30/18 17:00 BUN 11 mg/dL (7-18) 06/30/18 17:00 Creatinine 0.87 mg/dL (0.70-1.30) 06/30/18 17:00 Estimated Creat Clear 158 mL/min (0-300) 06/30/18 17:00 VTE Score: 1 - Prophylaxis VTE Prophylaxis Ordered?: Yes Types of VTE Prophylaxis: TEDS Knee High Location of Applied Device: Bilateral Lower Extremeties - VTE Diagnosis Confirmed Treatment or plan recommended: Continue Current Treatment
--- NOTE | 2018-07-01 09:35 | Pharmacy Consult Notes ---
- Pharmacy Consult Date: 07/01/18 Time: 09:30 Referring provider: DR. MOE Reason for Consult:: VANCOMYCIN DOSING Allergies and ADEs:: Allergies Allergy/AdvReac Type Severity Reaction Status Date / Time No Known Allergies Allergy Verified 12/16/17 11:33 Home Medications:: Home Medications Medication Instructions Recorded Confirmed Type insulin glargine (U-100) 100 24 unit SQ HS ml 12/16/17 07/01/18 History unit/mL (3 mL) subcutaneous pen levothyroxine 25 mcg tablet 25 mcg PO DAILY tab 12/16/17 06/30/18 History losartan 50 mg tablet 50 mg PO DAILY tab 12/16/17 06/30/18 History sitagliptin 100 mg tablet 100 mg PO DAILY tab 12/16/17 06/30/18 History Omeprazole [Omeprazole 40mg 40 mg PO DAILY 06/11/18 06/30/18 History Capsule] Aspirin [Children's Aspirin] 81 mg PO DAILY 06/12/18 06/30/18 History Atorvastatin Calcium [Atorvastatin 40 mg PO HS 06/12/18 07/01/18 History 40mg Tab] Gabapentin [Neurontin 600mg 600 mg PO BID 06/12/18 06/30/18 History tablet] Metformin HCl [Glucophage] 1,000 mg PO BID 06/12/18 06/30/18 History Mupirocin [Bactroban 2% Ointment 1 applicatio TP BID 06/16/18 06/30/18 History 22gm tube] Height: 1.78 m Weight: 112.491 kg Laboratory Results:: Laboratory Results - last 24 hr 06/30/18 17:00: WBC 12.0 H, RBC 5.46, Hgb 16.9, Hct 50.9, MCV 93.1, MCH 30.9, MCHC 33.2, RDW 12.7, Plt Count 337, MPV 7.4, Neut % (Auto) 70.5, Lymph % (Auto) 22.1, Maverick % (Auto) 5.2, Eos % (Auto) 1.9, Baso % (Auto) 0.5, Neut # (Auto) 8.5 H, Lymph # (Auto) 2.7, Ma[place]ick # (Auto) 0.6, Eos # (Auto) 0.2, Baso # (Auto) 0.1 06/30/18 17:00: Sodium 137, Potassium 4.3, Chloride 99, Carbon Dioxide 30, Anion Gap 12.3, BUN 11, Creatinine 0.87, Estimated Creat Clear 158, Estimated GFR 92, Est GFR ( Amer) 111, Glucose 265 H, Calcium 9.4 06/30/18 17:00: Lactate 1.8 06/30/18 19:54: POC Glucose 256 H 07/01/18 06:12: POC Glucose 158 H Medical History: Reports:: Diabetes Mellitus Type 2, Gastroesophageal Reflux Disease(GERD), Hyperlipidemia, Hypertension Denies:: Cancer, Diabetes Mellitus Type 1, MRSA Assessment and Plan (1) Diabetes mellitus Current visit: No Status: Acute Qualifiers: Diabetes mellitus type: type 1 Diabetes mellitus complication status: with unspecified complications Qualified Code(s): E10.8 - Type 1 diabetes mellitus with unspecified complications Category: Medical Code(s): E11.9 - Type 2 diabetes mellitus without complications (2) Facial cellulitis Current visit: Yes Status: Acute Category: Medical Code(s): L03.211 - Cellulitis of face - Assessment and plan all Dx Assessment and Plan for all problems:: BASED ON PATIENT'S FACTORS, RECOMMEND CONTINUING WITH VANCOMYCIN 2250 MG Q12H STARTING AT THIS AM. WILL OBTAIN TROUGH LEVEL IN AM PRIOR TO THE DOSE. PHARMACY WILL FOLLOW DAILY AND ADJUST APPROPRIATE. FANY LEROY, TONID
--- NOTE | 2018-07-02 08:45 | Progress Note ---
Internal Medicine - PN: Subj *Date: 07/01/18 *Time: 08:00 Interval history: pt with some improvement to reddness - Exam Vital signs and Labs for Last 24 Hours: Temp Pulse Resp BP Pulse Ox 97.8 F 99 H 18 160/78 H 95 07/02/18 07:12 07/02/18 07:12 07/02/18 07:12 07/02/18 07:12 07/02/18 07:12 Laboratory Results - last 24 hr 07/01/18 11:21: POC Glucose 255 H 07/01/18 17:09: POC Glucose 238 H 07/01/18 20:03: POC Glucose 235 H 07/02/18 06:43: POC Glucose 214 H 07/02/18 07:55: Vancomycin Trough 10.8 I & O for Last 24 hours: Intake & Output 06/29/18 06/30/18 07/01/18 07/02/18 11:59 11:59 11:59 11:59 Intake Total 1480 / 1480 240 / 240 Balance 1480 / 1480 240 / 240 Weight 248 lb Microbiology Reports for the Last 24 Hours: Microbiology 07/01/18 08:11 Face Gram Stain - Final 07/01/18 08:11 Face Wound Culture - Preliminary Gram Positive Cocci - Constitutional no acute distress - *Routine HEENT Exam Head: Present: normocephalic Eye: Present: EOMI, PERRL ENT: Present: mucous membranes dry - *Routine Neck Exam Present: supple - *Routine Respiratory Exam Present: CTA bilaterally - *Routine Cardiovascular Exam Present: RRR - *Routine Abdominal Exam Present: soft - *Routine Extremities Exam Absent: calf tenderness - *Routine Skin Exam Present: intact - *Routine Neurological Exam Present: alert, CN II-XII intact - Routine Psychiatric Exam Present: normal affect Assessment and Plan (1) Diabetes mellitus Current visit: No Status: Acute Qualifiers: Diabetes mellitus type: type 1 Diabetes mellitus complication status: with unspecified complications Qualified Code(s): E10.8 - Type 1 diabetes mellitus with unspecified complications Category: Medical Code(s): E11.9 - Type 2 diabetes mellitus without complications (2) Facial cellulitis Current visit: Yes Status: Acute Category: Medical Code(s): L03.211 - Cellulitis of face
--- NOTE | 2018-07-02 12:01 | Discharge Summary ---
General - General Admission date:: 06/30/18 Discharge date: 07/02/18 HPI HPI: this wm who has iddm and recent had cellulitis of upper ext and had iv abx per pic line and has been off abx x 1 week presents to [facility] with spreading facial cellulitis and was admitted for iv abx Hospital Course Hospital Course: pt with improvement with iv abx and has drainage from chin lesions - pt has pending cult results from gram pos - glu ok and no fever - blood cult ok - will await culture result and give vancomycin tonight Objective Vital signs: Temp Pulse Resp BP Pulse Ox 97.8 F 99 H 18 160/78 H 95 07/02/18 07:12 07/02/18 07:12 07/02/18 07:12 07/02/18 07:12 07/02/18 07:12 no acute distress - *Routine HEENT Exam Head: Present: normocephalic Eye: Present: EOMI, PERRL ENT: Present: mucous membranes dry - *Routine Neck Exam Present: supple - *Routine Respiratory Exam Present: CTA bilaterally - *Routine Cardiovascular Exam Present: RRR - *Routine Abdominal Exam Present: soft - *Routine Extremities Exam Present: full ROM - *Routine Skin Exam Comments: quarter sized area chin with drainage - no def abscess - *Routine Neurological Exam Present: alert, oriented X3, CN II-XII intact - Routine Psychiatric Exam Present: normal affect Results Labs on day of discharge: Labs from last 24 hours 07/02/18 07/02/18 07/01/18 07:55 06:43 20:03 POC Glucose 214 H 235 H Vancomycin Trough 10.8 07/01/18 17:09 POC Glucose 238 H Vancomycin Trough Preliminary micro results at discharge 07/01/18 08:11 Wound Culture - Preliminary Face Gram Positive Cocci DS: Diagnosis - Discharge Diagnosis (1) Diabetes mellitus Status: Acute (2) Facial cellulitis Status: Acute Discharge Plan - Patient Discharge Instructions ACTIVITY: Continue current activity DIET: continue same diet - Follow up Plan Disposition: Home, Self-Retirement Medications: Home Medications Medication Instructions Recorded Confirmed Type insulin glargine (U-100) 100 24 unit SQ HS ml 12/16/17 07/01/18 History unit/mL (3 mL) subcutaneous pen levothyroxine 25 mcg tablet 25 mcg PO DAILY tab 12/16/17 06/30/18 History losartan 50 mg tablet 50 mg PO DAILY tab 12/16/17 06/30/18 History sitagliptin 100 mg tablet 100 mg PO DAILY tab 12/16/17 06/30/18 History Omeprazole [Omeprazole 40mg 40 mg PO DAILY 06/11/18 06/30/18 History Capsule] Aspirin [Children's Aspirin] 81 mg PO DAILY 06/12/18 06/30/18 History Atorvastatin Calcium [Atorvastatin 40 mg PO HS 06/12/18 07/01/18 History 40mg Tab] Gabapentin [Neurontin 600mg 600 mg PO BID 06/12/18 06/30/18 History tablet] Metformin HCl [Glucophage] 1,000 mg PO BID 06/12/18 06/30/18 History Mupirocin [Bactroban 2% Ointment 1 applicatio TP BID 06/16/18 06/30/18 History 22gm tube] Prescriptions/Medication Reconciliation: New Sulfamethoxazole/Trimethoprim [Bactrim DS tablet] 1 each PO BID #14 tablet Minocycline HCl 100 mg PO BID #20 tablet Continue Aspirin [Children's Aspirin] 81 mg PO DAILY Atorvastatin Calcium [Atorvastatin 40mg Tab] 40 mg PO HS No Action insulin glargine (U-100) 100 unit/mL (3 mL) subcutaneous pen 24 unit SQ HS ml losartan 50 mg tablet 50 mg PO DAILY tab sitagliptin 100 mg tablet 100 mg PO DAILY tab levothyroxine 25 mcg tablet 25 mcg PO DAILY tab Gabapentin [Neurontin 600mg tablet] 600 mg PO BID Nicotine [Nicoderm 21mg/24hr patch] 21 mg TD DAILYP PRN #30 patch.td24 PRN Reason: Nicotine Cravings Mupirocin [Bactroban 2% Ointment 22gm tube] 1 applicatio TP BID Omeprazole [Omeprazole 40mg Capsule] 40 mg PO DAILY Metformin HCl [Glucophage] 1,000 mg PO BID
== END 2018-07-02 13:20 | disposition home or self-care (01) ==
LOC: 2ND 15:55 → UTC 15:55 → 2ND 17:30
PROVIDERS: ADMIT Emergency Medicine; ATTEND Emergency Medicine

== ENCOUNTER → 2018-11-06 15:54 | Outpatient (CLI) | payer MEDICAID, SELFPAY | PROVIDERS: PCP Physician Assistant; Visit Provider Physician Assistant | DX: G47.33 Obstructive sleep apnea (adult) (pediatric) (principal) | CPT/HCPCS: 95806 ==

== ENCOUNTER → 2019-01-21 12:39 | Outpatient (CLI) | payer MEDICAID, SELFPAY | PROVIDERS: PCP Emergency Medicine; Visit Provider Specialist | DX: G47.33 Obstructive sleep apnea (adult) (pediatric) (principal) | CPT/HCPCS: 94762 ==

== ENCOUNTER → 2019-02-13 12:40 | Outpatient (CLI) | payer MEDICAID, SELFPAY ==
[2019-02-13 14:36] LABS: Alanine Aminotransferase 48 U/L (12-78); Albumin Level 3.7 gm/dL (3.4-5.0); Albumin/Globulin Ratio 1.1 (1.1-1.8); Alkaline Phosphatase 105 U/L (46-116); Aspartate Amino Transferase 20 U/L (15-37); Bilirubin,Total 0.6 mg/dL (0.2-1.0); Blood Urea Nitrogen 12 mg/dL (7-18); Calcium 9.4 mg/dL (8.5-10.1); Carbon Dioxide 30 mmol/L (21.0-32.0); Chloride 98 mmol/L (98-107); Chol/HDL Ratio 4.9 (1-3.5); Cholesterol 107 mg/dL (140-200); Creatinine,Serum 0.77 mg/dL (0.70-1.30); Estimated Glomerular Filt Rate 106 ml/min (>60); GFR (African American) 128 ML/MIN (>60); Globulin 3.4 gm/dl (1.3-3.2); Glucose 233 mg/dL (74-106); HDL Cholesterol 22 mg/dL (27-67); LDL Cholesterol 58 mg/dL (0-130); Sodium 138 mmol/L (136-145); Total Protein,Serum 7.1 gm/dL (6.4-8.2); Triglycerides 136 mg/dL (30-200); VLDL Cholesterol 27 mg/dL (0-40)
== END ==
PROVIDERS: Visit Provider Internal Medicine Endocrinology, Diabetes & Metabolism
DX: E11.9 Type 2 diabetes mellitus without complications (principal); Z79.84 Long term (current) use of oral hypoglycemic drugs
CPT/HCPCS: 36415; 80053; 80061; 84443

== ENCOUNTER → 2020-04-18 09:48 | Outpatient (CLI) | payer OTHER, SELFPAY ==
[2020-04-18 11:43] LABS: Chloride 98 mmol/L (98-107); Potassium 4.5 mmoL/L (3.5-5.1); Sodium 140 mmol/L (136-145)
[2020-04-18 11:45] LABS: Blood Urea Nitrogen 13 mg/dl (9-20)
[2020-04-18 11:46] LABS: Alanine Aminotransferase 43 U/L (12-78); Albumin Level 4.3 g/dl (3.5-5.0); Albumin/Globulin Ratio 1.6 (1.1-1.8); Alkaline Phosphatase 81 U/L (38-126); Anion Gap 15.5 mEq/L (5-15); Aspartate Amino Transferase 33 U/L (17-59); Bilirubin,Total 0.6 mg/dl (0.2-1.3); Carbon Dioxide 31 mmol/L (22.0-30.0); Cholesterol 106 mg/dl (140-200); Estimated Glomerular Filt Rate 101 ml/min (>60); GFR (African American) 122 ML/MIN (>60); Globulin 2.7 g/dL (1.3-3.2); Triglycerides 157 mg/dl (30-150); VLDL Cholesterol 31 mg/dL (0-40)
[2020-04-18 11:47] LABS: Calcium 9.5 mg/dl (8.4-10.2); Chol/HDL Ratio 4.1 (1-3.5); Glucose 179 mg/dl (74-100); HDL Cholesterol 26 mg/dl (40-60)
[2020-04-18 11:58] LABS: Direct LDL Cholesterol 60.31 mg/dL (100-129)
[2020-04-18 12:05] LABS: Free T4 (Free Thyroxine) 1.14 ng/dl (0.78-2.19)
[2020-04-18 12:17] LABS: Thyroid Stimulating Hormone 2.77 uIU/mL (0.465-4.68)
== END ==
PROVIDERS: Visit Provider Internal Medicine Endocrinology, Diabetes & Metabolism
DX: E11.9 Type 2 diabetes mellitus without complications (principal); Z79.4 Long term (current) use of insulin
CPT/HCPCS: 36415; 80053; 80061; 82043; 84439; 84443

== ENCOUNTER → 2020-05-17 16:43 | Outpatient (CLI) | payer OTHER, SELFPAY ==
[2020-05-17 21:26] LABS: Chol/HDL Ratio 3.9 (1-3.5); Cholesterol 105 mg/dl (140-200); HDL Cholesterol 27 mg/dl (40-60); Triglycerides 206 mg/dl (30-150); VLDL Cholesterol 41 mg/dL (0-40)
[2020-05-17 21:40] LABS: Hemoglobin A1C 7.7 % (4.0-6.0)
[2020-05-17 22:56] LABS: Prostate Specific Ag Screen 0.3 ng/ml (0.0-4.0)
== END ==
PROVIDERS: Visit Provider Family Medicine
DX: Z12.5 Encounter for screening for malignant neoplasm of prostate (principal); E11.9 Type 2 diabetes mellitus without complications; B95.8 Unspecified staphylococcus as the cause of diseases classified elsewhere; L02.91 Cutaneous abscess, unspecified
CPT/HCPCS: 80061; 83036; 87070; 87077; 87186; 87205; G0103

== ENCOUNTER 2020-08-26 17:43 | Emergency (ER) | payer OTHER, SELFPAY ==
[2020-08-26 17:55] VITALS: BP 160/90; PULSE 98; RESP 20; O2SAT 97; BMI 33.0
--- NOTE | 2020-08-26 18:03 | HMH.EDUTC ---
[facility] [place] Clinical Impression: Exposure to COVID-19 virus Sinusitis Qualifiers: Sinusitis location: unspecified location Chronicity: acute Recurrence: non-recurrent Qualified Code(s): J01.90 - Acute sinusitis, unspecified Disposition: Home, Self-Care Condition on Discharge: Good Instructions: Sinusitis, DI for Sinusitis, Preventing the Spread of Coronavirus Discharge Instructions Additional Instructions: Drink plenty of fluids. Take tylenol for pain or fever. Return if you begin to have difficulty breathing. Follow up with your regular doctor. GO TO THE ER FOR ANY WORSENING SYMPTOMS Prescriptions: Azithromycin [Z-Alexander 250mg Tab*] 250 mg PO UD DOSE PK #6 tab Transmission Status: Pending to [facility] Referrals: Ghazala Gomez PA [Primary Care Provider] - Time of Disposition: 18:14 Medical Decision Making - Medical Records Medical records reviewed: No: I reviewed the patient's medical records. - Rj Inquiry Pt receiving controlled substance: No Vital Signs: 08/26/20 17:55 Pulse Rate [Radial] 98 H Respiratory Rate 20 Blood Pressure [Right Arm] 160/90 H Blood Pressure Mean [Right Arm] 113 Blood Pressure Source [Right Arm] Automatic Cuff Blood Pressure Position [Right Arm] Sitting 02 Sat by Pulse Oximetry 97 Oxygen Delivery Method Room Air Orders (Tests/Meds): ORDERS Category Date Time Status Covid-19 Nasal PCR ([facility]) Routine Lab 08/26/20 17:47 Ordered [facility] [place] - General Stated complaint: covid test Time Seen by Provider: 08/26/20 18:05 Mode of Arrival: Ambulatory Source of Information: Patient Limitations: No Limitations Description of Symptoms (Recalled from Triage Doc. by RN): covid test, runny nose, scratchy throat, cough, covid exposure. HEENT Symptoms (Recalled from RN notes): Yes Resp Symptoms (Recalled from RN notes): No Skin Symptoms (Recalled from RN notes): No MS Symptoms (Recalled from RN notes): No Functional Status (Recalled from RN notes): wnl - History of Present Illness Provider Complaint: He states that for the past 3 days he has had a sinus congestion and nasal drainage. He was exposed to covid at this job earlier this week. - Related Data Home Medications Medication Instructions Recorded Confirmed insulin glargine 100 unit/mL (3 24 unit SQ HS ml 12/16/17 07/05/20 mL) subcutaneous pen levothyroxine 25 mcg tablet 25 mcg PO DAILY tab 12/16/17 07/05/20 sitagliptin 100 mg tablet 100 mg PO DAILY tab 12/16/17 07/05/20 Aspirin [Children's Aspirin] 81 mg PO DAILY 06/12/18 07/05/20 Atorvastatin Calcium [Lipitor 40mg 40 mg PO HS 06/12/18 07/05/20 Tab] Metformin HCl [Glucophage] 1,000 mg PO BID 06/12/18 07/05/20 gabapentin 600 mg tablet 600 mg PO TID tab 10/01/19 07/05/20 ertugliflozin 5 mg tablet 5 mg PO DAILY 10/30/19 07/05/20 blood sugar diagnostic See Rx Instructions .ROUTE 05/17/20 07/05/20 .MEDSUPPLY #10 each blood-glucose meter See Rx Instructions .ROUTE 05/17/20 07/05/20 .MEDSUPPLY #1 each lancets 33 gauge See Rx Instructions .ROUTE 05/17/20 07/05/20 .MEDSUPPLY #100 each Previous Rx's Medication Instructions Recorded omeprazole 40 mg capsule,delayed 40 mg PO DAILY #90 cap 09/25/19 release Ondansetron [Zofran 4mg ODT] 4 mg PO Q8HP PRN #10 tab.rapdis 10/15/19 sulfacetamide sodium 10 % eye drops 1 drp OPHTHALMIC Q4H 7 Days #5 ml 10/30/19 sulfamethoxazole 800 1 tab PO BID #30 tab 05/17/20 mg-trimethoprim 160 mg tablet losartan 50 mg-hydrochlorothiazide See Rx Instructions .ROUTE 08/10/20 12.5 mg tablet .COMPLEX #90 tab Azithromycin [Z-Alexander 250mg Tab*] 250 mg PO UD DOSE PK #6 tab 08/26/20 Allergies Allergy/AdvReac Type Severity Reaction Status Date / Time No Known Allergies Allergy Verified 07/05/20 11:03 - Worker's Comp Is this a Worker's Comp case?: No [facility] History - Hepatitis A Screen Drug use history?: No High risk sexual behaviors?: No History of sexually transmitte
[2020-08-26 18:21] VITALS: BP 160/90; PULSE 98; RESP 18; TEMP 36.7; O2SAT 97
== END 2020-08-26 18:22 | disposition home or self-care (01) ==
PROVIDERS: Emergency Provider Nurse Practitioner Family; PCP Physician Assistant
DX: Z20.828 Contact with and (suspected) exposure to other viral communicable diseases (principal); J01.90 Acute sinusitis, unspecified; E11.9 Type 2 diabetes mellitus without complications; E78.5 Hyperlipidemia, unspecified; K21.9 Gastro-esophageal reflux disease without esophagitis; E03.9 Hypothyroidism, unspecified; F17.210 Nicotine dependence, cigarettes, uncomplicated; Z79.899 Other long term (current) drug therapy; Z79.84 Long term (current) use of oral hypoglycemic drugs
CPT/HCPCS: 99201; U0003

== ENCOUNTER → 2021-07-20 07:48 | Outpatient (CLI) | payer OTHER, SELFPAY ==
[2021-07-20 09:17] LABS: Alanine Aminotransferase 45 U/L (12-78); Albumin Level 4.6 g/dl (3.5-5.0); Albumin/Globulin Ratio 1.6 (1.1-1.8); Alkaline Phosphatase 96 U/L (38-126); Anion Gap 15.4 mEq/L (5-15); Aspartate Amino Transferase 40 U/L (17-59); Bilirubin,Total 0.6 mg/dl (0.2-1.3); Blood Urea Nitrogen 14 mg/dl (9-20); Carbon Dioxide 32 mmol/L (22.0-30.0); Chloride 101 mmol/L (98-107); Chol/HDL Ratio 4.8 (1-3.5); Cholesterol 119 mg/dl (140-200); Estimated Glomerular Filt Rate 100 ml/min (>60); GFR (African American) 121 ML/MIN (>60); Globulin 2.9 g/dL (1.3-3.2); Glucose 151 mg/dl (74-100); HDL Cholesterol 25 mg/dl (40-60); Potassium 5.4 mmoL/L (3.5-5.1); Sodium 143 mmol/L (136-145); Total Protein,Serum 7.5 g/dl (6.3-8.2); Triglycerides 165 mg/dl (30-150); VLDL Cholesterol 33 mg/dL (0-40)
[2021-07-20 09:42] LABS: Direct LDL Cholesterol 63.11 mg/dL (100-129)
[2021-07-20 09:47] LABS: Free T4 (Free Thyroxine) 1.21 ng/dl (0.78-2.19)
[2021-07-20 10:00] LABS: Thyroid Stimulating Hormone 3.62 uIU/mL (0.465-4.68)
== END ==
PROVIDERS: PCP Physician Assistant; Visit Provider Nurse Practitioner Family
DX: E11.40 Type 2 diabetes mellitus with diabetic neuropathy, unspecified (principal); E03.9 Hypothyroidism, unspecified; Z79.4 Long term (current) use of insulin
CPT/HCPCS: 36415; 80053; 80061; 83036; 84439; 84443

== ENCOUNTER → 2022-05-09 08:33 | Outpatient (CLI) | payer OTHER, SELFPAY ==
[2022-05-09 09:42] LABS: Chloride 102 mmol/L (98-107); Sodium 139 mmol/L (136-145)
[2022-05-09 09:43] LABS: Potassium 4.5 mmoL/L (3.5-5.1)
[2022-05-09 09:45] LABS: Alanine Aminotransferase 47 U/L (12-78); Alkaline Phosphatase 87 U/L (38-126); Anion Gap 9.5 mEq/L (5-15); Aspartate Amino Transferase 48 U/L (17-59); Bilirubin,Total 0.5 mg/dl (0.2-1.3); Blood Urea Nitrogen 19 mg/dl (9-20); Carbon Dioxide 32 mmol/L (22.0-30.0); Estimated Glomerular Filt Rate 100 ml/min (>60); GFR (African American) 121 ML/MIN (>60)
[2022-05-09 09:46] LABS: Albumin Level 4.5 g/dl (3.5-5.0); Albumin/Globulin Ratio 1.9 (1.1-1.8); Calcium 9.4 mg/dl (8.4-10.2); Chol/HDL Ratio 4.4 (1-3.5); Cholesterol 109 mg/dl (140-200); Globulin 2.4 g/dL (1.3-3.2); Glucose 133 mg/dl (74-100); HDL Cholesterol 25 mg/dl (40-60); Total Protein,Serum 6.9 g/dl (6.3-8.2); Triglycerides 140 mg/dl (30-150); VLDL Cholesterol 28 mg/dL (0-40)
[2022-05-09 09:59] LABS: Hemoglobin A1C 8.2 % (4.0-6.0)
[2022-05-09 10:02] LABS: Free T4 (Free Thyroxine) 1.05 ng/dl (0.78-2.19)
[2022-05-10 09:13] LABS: Direct LDL Cholesterol 60 mg/dL (100-129)
== END ==
PROVIDERS: PCP Physician Assistant; Visit Provider Nurse Practitioner Family
DX: E11.40 Type 2 diabetes mellitus with diabetic neuropathy, unspecified (principal); Z79.4 Long term (current) use of insulin
CPT/HCPCS: 36415; 80053; 80061; 83036; 84439; 84443

== ENCOUNTER 2022-12-07 22:28 | Emergency (ER) | payer OTHER, SELFPAY ==
[2022-12-07 22:35] VITALS: BP 161/90; PULSE 98; RESP 15; TEMP 36.4; O2SAT 99; BMI 21.5
[2022-12-07 23:00] VITALS: BP 138/72; PULSE 78; O2SAT 96
--- NOTE | 2022-12-07 23:12 | HMH.EDSKAF ---
Discharge Plan Disposition Patient Disposition: Home, Self-Care Prescriptions Prescriptions: New minocycline 100 mg Capsule 100 mg PO BID Qty: 20 0RF No Action albuterol sulfate [Proventil HFA] 90 mcg/actuation HFA aerosol inhaler 2 puff IH Q6H PRN (Reason: shortness of breath or wheezing) Qty: 8.5 0RF Rx Instructions: administer with spacer (DME) blood-glucose meter Misc See Rx Instructions .ROUTE .MEDSUPPLY Qty: 1 Label Comments: USE TO TEST BLOOD SUGAR DIRECTED Rx Instructions: As directed (DME) blood sugar diagnostic Strip See Rx Instructions .ROUTE .MEDSUPPLY Qty: 10 Label Comments: USE TO TEST BLOOD SUGAR 1 TIME EACH DAY Rx Instructions: As directed (DME) lancets 33 gauge misc See Rx Instructions .ROUTE .MEDSUPPLY Qty: 100 Label Comments: USE TO TEST BLOOD SUGAR 1 TIME EACH DAY Rx Instructions: As directed Lantus Solostar U-100 Insulin 100 unit/mL (3 mL) insulin pen 10 unit SQ HS Qty: 15 2RF Rx Instructions: Inject 38-41 units depending, sliding scale. metformin 1,000 mg tablet 1,000 mg PO BID Qty: 180 3RF gabapentin 600 mg tablet 600 mg PO TID Qty: 90 2RF albuterol sulfate 1.25 mg/3 mL solution for nebulization 1.25 mg IH QID PRN (Reason: shortness of breath or wheezing) Qty: 90 0RF atorvastatin 40 mg tablet 40 mg PO HS Qty: 90 3RF omeprazole 40 mg capsule,delayed release(DR/EC) See Rx Instructions .ROUTE .COMPLEX Rx Instructions: TAKE 1 CAPSULE 1 TIME EACH DAY FOR REFLUX levothyroxine 25 mcg tablet See Rx Instructions .ROUTE .COMPLEX Rx Instructions: TAKE 1 TABLET 1 TIME EACH DAY FOR THYROID aspirin 81 mg tablet,chewable See Rx Instructions .ROUTE .COMPLEX Rx Instructions: CHEW AND SWALLOW 1 TABLET 1 TIME EACH DAY FOR HEART HEALTH losartan-hydrochlorothiazide 50-12.5 mg tablet See Rx Instructions .ROUTE .COMPLEX Rx Instructions: TAKE 1 TABLET 1 TIME EACH DAY FOR BLOOD PRESSURE Steglatro 15 mg tablet 15 mg PO DAILY Ozempic 1 mg/dose (4 mg/3 mL) pen injector 1 mg SQ WEEKLY Referrals Follow up/Referrals: Ghazala Gomez PA [Primary Care Provider] - See instructions Clinical Impressions Clinical Impression: Tick bite Instructions Patient Instructions: Protect Yourself from Tickborne Illnesses Discharge ED Provider: Bob (ED)Raj Skin/Abscess/FB HPI General Chief complaint: Skin/Abscess/Foreign Body Stated complaint: tick in side, redness and swelling Time Seen by Provider: 12/07/22 23:12 Mode of Arrival: Family Vehicle Source of Information: Patient and Medical Record Limitations: No Limitations Description of Symptoms (Recalled from ER Triage Doc. by RN): 57 YO MALE PRESENTS WITH CHIEF COMPLAINT SKIN IRRITATION FROM TICK BITE. PATIENT STATES HE INCIDENTALLY HIT SOMETHING AGAINST THE RIGHT SIDE RIB AREA AND NOTICED IT TO BE EXCEEDINGLY TENDER UPON CONTACT. WHEN HE LOOKED AT THE AREA, HE NOTICED A TICK ATTACHED TO HIS SKIN, AND AFTER REMOVING NOTED THAT IT WAS IRRITATED, RED, AND PAINFUL. AFEBRILE. CURRENTLY NOT ON ANY ANTIBIOTICS OR IMMUNOSUPPRESSANTS. PMH: DIABETES, HYPERTENSION History of Present Illness HPI narrative: removed tick rt costal area tonight with reddness - uncertain to how long tick present - brought tick in looked like small deer tick - no fever or viral like sx complaint: other (tick bite ) Onset (ago): hour(s) Location: chest Severity: mild Associated symptoms: denies other symptoms Related Data Home Medications Medication Instructions Recorded Confirmed blood sugar diagnostic #10 05/17/20 12/07/22 blood-glucose meter #1 05/17/20 12/07/22 lancets 33 gauge #100 05/17/20 12/07/22 aspirin 81 mg chewable tablet See Rx Instructions .Route 12/07/22 12/07/22 .COMPLEX ANTIPLATELET ertugliflozin 15 mg tablet 15 mg PO DAILY Diabetes 12/07/22 12/07/22 (Steglatro) levot
[2022-12-07 23:32] VITALS: BP 156/70; PULSE 79; RESP 19; TEMP 36.7; O2SAT 99
== END 2022-12-07 23:37 | disposition home or self-care (01) ==
PROVIDERS: Emergency Provider Emergency Medicine; PCP Physician Assistant
DX: R22.2 Localized swelling, mass and lump, trunk (principal); W57.XXXA Bitten or stung by nonvenomous insect and other nonvenomous arthropods, initial encounter
CPT/HCPCS: 99283; 99284

== ENCOUNTER → 2022-12-10 13:59 | Outpatient (CLI) | payer OTHER, SELFPAY | PROVIDERS: PCP Physician Assistant; Visit Provider Physician Assistant | DX: I49.1 Atrial premature depolarization (principal); I49.3 Ventricular premature depolarization; I49.8 Other specified cardiac arrhythmias; R94.31 Abnormal electrocardiogram [ECG] [EKG] | CPT/HCPCS: 36415; 84439; 93225; 93226 ==

== ENCOUNTER 2022-12-11 06:06 | Day surgery (SDC) | payer OTHER, SELFPAY ==
[2022-12-11] VITALS (11 sets, daily range): BP systolic 104–162; BP diastolic 59–117; PULSE 79–96; RESP 16–20; TEMP 36.2; O2SAT 95–99; BMI 29.8
--- NOTE | 2022-12-11 06:07 | NM_ITS ---
APPROVED REPORT Exam: Nuclear Stress Test Indication: DYSRHYTHMIA, HTN, DM, HYPERLIPIDEMIA, TOB USE, FM HX, C.P., PALPITAIONS Patient Location: Outpatient Stress Tech: [facility] Tech:Peg Marcano, ARRJany RT (R)(N)(M) Ht: 5 ft 11 in Wt: 208 lbs HR: 84 bpm BP: 175/61 mmHg BSA: 2.14 m2 TID: 1.30 BMI: 29.0 History: DYSRHYTHMIA, HTN, DM, HYPERLIPIDEMIA, TOB USE, FM HX, C.P., PALPITAIONS Procedure: Patient exercised on Zuhair protocol 6:00 minutes and sec, resting heart rate 84 bpm, resting blood pressure 175/61 mmHg, with exercise maximum heart rate achived was 155 bpm which is 96 % of the maximum predicted heart rate and blood pressure was 148/80 mmHg. Test was stopped due to soa, chest tightness. Patient has Adequate exercise capacity, achieved 7.0 METs of workload on treadmill, the blood pressure response to exercise was Abnormal. Electrocardiogram Resting electrocardiogram shows sinus rhythm with exercise there is [address] segment depression noted from the baseline EKG. The EKG portion of the exercise Myoview is positive for ischemia. Cardiac Stress and Resting SPECT Images: Cardiac Stress and Resting SPECT images were obtained using technetium 99m Myoview 31.3 mCi stress and 10.17 mCi at rest. Gated SPECT analysis of segmental wall motion and calculation of the ejection fraction also done. Prone images were also obtained. Cardiac stress and rest SPECT images showed a large area of partially reversible defect involving the anterior, anterior apical, apex and anteroseptal wall, consistent with mixed ischemia and scar, there is transient ischemic dilatation of the left ventricle seen, computer derived ejection fraction is 17% with mild hypokinesis involving the anterior, anterior apical, apex and anteroseptal wall. Right ventricle is mildly enlarged with normal contractility. Conclusion: 1. The EKG portion of the exercise Myoview is positive for ischemia, patient has adequate exercise capacity achieved 7 METS of workload on treadmill, the blood pressure response to exercise was abnormal, patient complained of chest tightness with exercise. 2. Scintigraphic evidence of large area of mixed ischemia and scar involving the anterior, anterior apical, apex and anteroseptal wall, there is transient ischemic dilatation of the left ventricle seen raising the concern for presence of multivessel coronary artery disease, computer derived ejection fraction of 17% with segmental wall motion abnormality as described above, right ventricle is mildly enlarged with normal contractility. 3. Abnormal exercise Myoview study. Electronically signed by : Joe Barton MD 12/11/2022 17:07:12
--- NOTE | 2022-12-11 06:07 | CA_ITS ---
APPROVED REPORT EXAM: Comprehensive 2D, Doppler, and color-flow Echocardiogram Embedded Systems Engineer: Swati Garcia, RCS, RVS Ht: 5 ft 10 in Wt: 208lbs BSA: 2.12 BP: 140/75 mmHg Indications: Bigrminy of PVC's, Abn EKG, HTN 2D Dimensions IVSd 1.13 cm LVEF (Visual) 66.30 % PWd 0.96 cm LVDd 4.63 cm LVDs 2.94 cm Aortic Root 3.04 cm Left Atrium 3.82 cm LVOT 2.12 cm (M/F) 1.5-2.5 M-Mode Dimensions RVDd 2.72 cm (0.9-2.6) LA Diam 4.17 cm (1.9-4.0) LVDd 5.06 cm (3.5-5.7) Ao Diam 2.77 cm (2.0-3.7) LVDs 3.32 cm (3.5-5.7) IVSd 1.15 cm (0.6-1.1) PWd 0.98 cm (0.6-1.1) EF (Teich) 63.20% EPSs 0.47 cm FS 34.40% EDV (Teich) 121.60 mL TAPSE 2.14 (<1.7) ESV (Teich) 44.80 mL LV Diastology E Decel Time 223.00 (160-240 msec) E/A Ratio 0.81 MED E' 5.70 (< 7 cm/sec) MED A' 8.30 cm/s E'/MED E' Ratio 14.46 (>14) LAT E' 7.10 (<10 cm/sec) LAT A' 9.70 cm/s E/LAT E' Ratio 11.61 (>14) Aortic Valve LVOT Max 117.00 (70-110 cm/s) LVOT VTI 24.66 cm AoV Peak Abhi. 128.00 (50-130 cm/s) AO Peak GR. 6.50 mmHg AO Mean GR. 3.20 (<5 mmHg) AO VTI 24.94 (18-25 cm) AYE (VTI) 3.49 (2.5-4.5 cm2) Mitral Valve MV A Velocity 102.00 (40-130 cm/s) E/A Ratio 0.81 MV Decel. Time 223.00 (160-240 ms) MV PHT 78.00 ms Pulmonary Valve PV Peak Velocity 107.00 (50-150 cm/s) Left Ventricle Left atrium is mildly enlarged, left ventricle is normal size mild concentric left ventricular hypertrophy, estimated ejection fraction approximately 30%, there is marked hypokinesis involving mid to distal septum, anterior, anterior apical and apical wall. Lateral wall is also moderately hypokinetic. Grade 1 diastolic dysfunction seen without tissue Doppler evidence of raise left atrial pressure. Right Ventricle Right atrium and right ventricle are normal size and contractility. Aortic Valve Aortic valve is minimally thickened and calcified without aortic stenosis aortic insufficiency. Mitral Valve Mitral valve is has mitral annular calcification, there is no mitral stenosis, there is mild mitral regurgitation. Tricuspid Valve Tricuspid valve grossly normal, there is mild tricuspid regurgitation, tricuspid regurgitation jet velocity is inadequate for calculation of the right ventricular systolic pressure. Pulmonic Valve Pulmonic valve is poorly visualized. Great Vessels Aortic root is normal size. Inferior vena cava normal size with normal inspiratory collapse. Pericardium No significant pericardial effusion noted. Conclusion 1. Mildly enlarged atrium, normal left ventricular size mild concentric left ventricular hypertrophy, estimated ejection fraction 30% with multiple segmental wall motion abnormality described above, grade 1 diastolic dysfunction seen without tissue Doppler evidence of late left atrial pressure. 2. Mild mitral and tricuspid regurgitation. 3. No significant pericardial effusion. Inferior vena cava is normal size with normal inspiratory Electronically signed by : Joe Barton MD 12/11/2022 18:59:06
--- NOTE | 2022-12-11 06:07 | CA_ITS ---
APPROVED REPORT Exam: Exercise Treadmill Technologist: Marianna Flores Ht: 5 ft 10 in Wt: 208 lbs BSA: 2.12 m2 HR: 84 bpm BP: 175/61 mmHg Medical History Medications: Omeprazole,,,,, Levothyroxine,,,,, Aspirin,,,,, Metformin,,,,, Gabapentin,,,,, Atorvastatin,,,,, LanTUS Solostar,,,,, Toprol XL,,,,, MiNOCYCLINE,,,,, Losartan-HCTZ,,,,, Ozempic,,,,, SteGLATo,,,,, Stress Test Details Test: Zuhair HR Resting HR: 88 bpm Max Heart Rate (APMHR): 164.981775 bpm Max HR Achieved: 157 bpm Target HR (85% APMHR): 139.268167 bpm % of APMHR: 95.73 Recovery HR: 102 bpm BP Resting BP: 168.0/72.0 mmHg Max BP: 203.0/102.0 mmHg Recovery BP: 160.0/68.0 mmHg ECG Resting ECG: Normal sinus rhythm, frequent PVCs in a bigeminal pattern Clinical Exercise duration: 06:01 min Highest Stage Achieved: Exercise capacity: 7.0 METs Stress ECG Conclusion Patient exercised 6:00 on Zuhair Protocol. Test stopped due to shortness of air, fatigue. Symptoms: Mild chest tightness and discomfort between the scapula. Arrhythmias/Ectopy: Frequent PVCs and occasional Ventricular couplets which diminished significantly during exercise. ST-T Changes: T wave inversion in leads I and aVL approximately 1 mm of J point elevation in lead V2. NS ST depression inferiorly and laterally in recovery. Conclusion: Chest discomfort and EKG changes of unclear significance. Myoview images reported separately. Test Summary REST . . . . . . . Standing REST 04:31 0.0 0.0 88 . 168/ 72 . . Stage 1 01:00 10.0 1.7 103 . . . . Stage 1 02:00 10.0 1.7 116 . . . . Stage 1 03:00 10.0 1.7 126 . 150/ 76 . . Stage 2 01:00 12.0 2.5 144 . . . . Stage 2 02:00 12.0 2.5 152 . . . . Stage 2 03:00 12.0 2.5 156 . 148/ 80 . . Stage 3 00:01 14.0 3.4 156 . . . Stop exercise at 06:01 RECOVERY 01:00 0.0 0.0 139 . . . . RECOVERY 02:00 0.0 0.0 125 . . . . RECOVERY 03:00 0.0 0.0 112 . 203/102 . . RECOVERY 04:00 0.0 0.0 105 . 202/104 . . RECOVERY 05:00 0.0 0.0 110 . 202/104 . . RECOVERY 06:00 0.0 0.0 101 . 202/104 . . RECOVERY 07:00 0.0 0.0 103 . 182/ 79 . . RECOVERY 08:00 0.0 0.0 102 . 160/ 68 . . RECOVERY 08:35 0.0 0.0 96 . 160/ 68 . . Electronically signed by : Joe Barton MD 12/11/2022 17:02:10
--- NOTE | 2022-12-11 10:08 | IR_ITS ---
APPROVED REPORT Patient Location: Outpatient Director Of Volunteer Services: TAY Tee RT (R) PROCEDURES Left heart catheterization Left ventriculogram Selective coronary angiogram INDICATION High risk abnormal Myoview, Systolic congestive heart failure ejection fraction 17%, Ventricular ectopy Informed consent was obtained prior to the procedure. COMPLICATIONS None Estimated Blood Loss: Less than 10 mls TECHNIQUE One percent lidocaine used to anesthetize the right anterior aspect of the wrist. The right radial artery was accessed via the Seldinger technique. A 6 Vincentian sheath was placed in the right radial artery. 150 mg magnesium sulfate, 800 mcg of nitroglycerin, 1mg Lidocaine and 5000 U Heparin were given through the arterial sheath. The papa catheter and 6 Vincentian JR 3 catheter were also used to perform left heart catheterization, left ventriculogram and selective coronary angiogram. At the end of the procedure the sheath was removed good hemostasis was achieved using Traclet band, patient was transferred to the postop holding area in stable condition. ANGIOGRAPHIC RESULTS The left main artery Normal The left anterior descending artery Proximally occluded. The midportion of the LAD is collateralized through septal perforators which then backfill a moderate-sized diagonal artery. The caliber of the mid LAD and diagonal artery is small however this may represent underfilling of the vessel. The distal portion of the LAD appears to be subtotally occluded and is also collateralized from the distal right coronary artery. The distal LAD is extremely small The circumflex artery Gives rise to a moderate sized ramus intermedius which has proximal 60 and 70% stenoses. The circumflex artery is nondominant and yet still a large vessel and has mid vessel 70 to 80% stenoses. The terminal obtuse marginal artery has proximal and mid vessel tandem 90% stenosis The right coronary artery Is a large dominant vessel and has proximal 50 and 60% stenoses with mid vessel 40% stenoses. A large posterior descending artery has a proximal concentric 80% stenosis while the distal vessel has 70 and 90% stenosis The ROSE ventriculogram reveals Are you ventriculogram reveals dilated ventricle with severe global hypokinesis estimate ejection fraction less than 30% The left ventricular end-diastolic pressure 20 mmHg IMPRESSION Coronary disease as described above Reduced ejection fraction Borderline elevated LVEDP PLAN 1. Start carvedilol 3.125 mg p.o. twice daily and plan to double the carvedilol this and follow-up 2. Increase atorvastatin from 40 a day to 80 mg daily 3. Discontinue losartan HCT and start losartan 50 mg twice daily 4. Schedule cardiac MRI with gadolinium at [facility] and determine myocardial viability 5. Immediate avoidance of tobacco products 6. Placement of LifeVest within the next 48 hours 7. If anterior wall is viable we will refer patient to [facility] for consideration of bypass surgery 8. AICD in 90 days if ejection fraction remains 35% or less Electronically signed by : Willard Pa MD 12/11/2022 13:38:12
[2022-12-11 11:11] LABS: Basophils # 0.1 K/mm3 (0-0.2); Basophils % 1.1 % (0.1-2.0); Eosinophils # 0.3 K/mm3 (0.0-0.4); Hematocrit 53.5 % (42.0-52.0); Hemoglobin 17.8 g/dL (14.1-18.0); Lymphocytes # 2.2 K/mm3 (0.7-4.5); Lymphocytes % 23.8 % (10-50); Mean Corpuscular HGB Conc 33.2 g/dL (31.8-35.4); Mean Corpuscular Hemoglobin 32.2 pg (27.0-31.2); Mean Corpuscular Volume 97.1 fl (80-94); Mean Platelet Volume 8.1 fl (7.4-10.4); Monocytes # 0.5 K/mm3 (0.1-1.0); Monocytes % 5.4 % (1.7-9.3); Neutrophils # 6.1 K/mm3 (1.8-7.8); Neutrophils % 66.7 % (37.0-80.0); Platelet Count 299 K/mm3 (142-424); Red Blood Count 5.51 M/mm3 (4.60-6.20); Red Cell Distribution Width 13.1 % (11.5-17.5); White Blood Count 9.1 K/mm3 (4.8-10.8)
[2022-12-11 11:17] LABS: Chloride 95 mmol/L (98-107); Potassium 3.9 mmoL/L (3.5-5.1); Sodium 134 mmol/L (136-145)
[2022-12-11 11:20] LABS: Anion Gap 13.9 mEq/L (5-15); Blood Urea Nitrogen 17 mg/dl (9-20); Carbon Dioxide 29 mmol/L (22.0-30.0); Creatinine Clearance Estimated 122 mL/min (50-200); Estimated Glomerular Filt Rate 87 ml/min (>60); GFR (African American) 106 ML/MIN (>60)
[2022-12-11 11:21] LABS: Calcium 8.8 mg/dl (8.4-10.2); Glucose 170 mg/dl (74-100)
== END 2022-12-11 15:10 | disposition home or self-care (01) ==
LOC: RAD 15:10 → CATHLAB 12-12 10:22
PROVIDERS: Internal Medicine; PCP Physician Assistant; Visit Provider Physician Assistant
DX: I49.1 Atrial premature depolarization (principal); I50.20 Unspecified systolic (congestive) heart failure; I25.10 Atherosclerotic heart disease of native coronary artery without angina pectoris; I11.0 Hypertensive heart disease with heart failure; E78.5 Hyperlipidemia, unspecified; E03.9 Hypothyroidism, unspecified; I49.3 Ventricular premature depolarization; Z79.4 Long term (current) use of insulin; E11.9 Type 2 diabetes mellitus without complications; Z79.899 Other long term (current) drug therapy
CPT/HCPCS: 78452; 80048; 85025; 93017; 93306; 93458; 99152; A9502; C1725; C1769; J1644; Q9967

== ENCOUNTER → 2023-01-23 12:28 | Outpatient (CLI) | payer OTHER, SELFPAY ==
--- NOTE | 2023-01-23 12:32 | CT_ITS ---
FINAL REPORT TECHNIQUE: Axial images were obtained through the chest without contrast. This study was performed with techniques to keep radiation doses as low as reasonably achievable (ALARA). Individualized dose reduction techniques using automated exposure control or adjustment of mA and/or kV according to the patient's size were employed. CLINICAL HISTORY: CAD, hx recent heart attack , scheduled for open heart surgery on 02/16/23 FINDINGS: There are densely calcified coronary arteries. The lungs are clear. The heart size is normal. There is no pericardial or pleural effusion. Limited images of the upper abdomen reveal multiple small stones in the gallbladder. There is a small periampullary duodenal diverticulum well seen on image 89 of series 2. No suspicious infiltrate or nodule identified. IMPRESSION: No acute cardiopulmonary process. Cholelithiasis. Reviewed, Interpreted and Dictated by Elpidio Land MD Transcribed by Janey Goodman Authenticated and . [facility]
== END ==
PROVIDERS: PCP Physician Assistant; Visit Provider Thoracic Surgery (Cardiothoracic Vascular Surgery)
DX: I25.10 Atherosclerotic heart disease of native coronary artery without angina pectoris (principal)
CPT/HCPCS: 71250

== ENCOUNTER → 2023-04-15 13:33 | Outpatient (CLI) | payer OTHER, SELFPAY | LOC: RT 13:34 | PROVIDERS: PCP Physician Assistant; Visit Provider Internal Medicine | DX: I25.10 Atherosclerotic heart disease of native coronary artery without angina pectoris (principal); I11.0 Hypertensive heart disease with heart failure; I50.20 Unspecified systolic (congestive) heart failure; I49.1 Atrial premature depolarization; I49.3 Ventricular premature depolarization; I49.8 Other specified cardiac arrhythmias; E11.9 Type 2 diabetes mellitus without complications; R94.31 Abnormal electrocardiogram [ECG] [EKG]; Z72.0 Tobacco use; Z95.1 Presence of aortocoronary bypass graft; Z95.810 Presence of automatic (implantable) cardiac defibrillator; Z79.4 Long term (current) use of insulin | CPT/HCPCS: 93308 ==

== ENCOUNTER → 2023-04-29 10:01 | Outpatient (CLI) | payer OTHER, SELFPAY ==
[2023-04-29 10:33] LABS: Basophils % 0.5 % (0.1-2.0); Eosinophils # 0.2 K/mm3 (0.0-0.4); Eosinophils % 3.1 % (0.1-12.0); Hemoglobin 14.4 g/dL (14.1-18.0); Lymphocytes # 2.2 K/mm3 (0.7-4.5); Mean Corpuscular HGB Conc 31.9 g/dL (31.8-35.4); Mean Corpuscular Hemoglobin 28.8 pg (27.0-31.2); Mean Corpuscular Volume 90.1 fl (80-94); Mean Platelet Volume 8.7 fl (7.4-10.4); Monocytes # 0.4 K/mm3 (0.1-1.0); Monocytes % 5.9 % (1.7-9.3); Neutrophils # 3.9 K/mm3 (1.8-7.8); Neutrophils % 57.6 % (37.0-80.0); Platelet Count 264 K/mm3 (142-424); Red Blood Count 4.99 M/mm3 (4.60-6.20); Red Cell Distribution Width 14.8 % (11.5-17.5); White Blood Count 6.8 K/mm3 (4.8-10.8)
[2023-04-29 11:18] LABS: Alanine Aminotransferase 37 U/L (12-78); Albumin Level 4.4 g/dl (3.5-5.0); Alkaline Phosphatase 98 U/L (38-126); Anion Gap 11.4 mEq/L (5-15); Aspartate Amino Transferase 40 U/L (17-59); Bilirubin,Indirect 0.6 mg/dL (0.0-0.9); Bilirubin,Total 0.6 mg/dl (0.2-1.3); Bilirubin,Unconjugated 0.7 mg/dL (0.0-1.1); Blood Urea Nitrogen 15 mg/dl (9-20); Calcium 9.3 mg/dl (8.4-10.2); Carbon Dioxide 31 mmol/L (22.0-30.0); Chloride 104 mmol/L (98-107); Chol/HDL Ratio 2.8 (1-3.5); Cholesterol 91 mg/dl (140-200); Estimated Glomerular Filt Rate 116 ml/min (>60); GFR (African American) 141 ML/MIN (>60); Glucose 94 mg/dl (74-100); HDL Cholesterol 33 mg/dl (40-60); Potassium 4.4 mmoL/L (3.5-5.1); Sodium 142 mmol/L (136-145); Total Protein,Serum 7.2 g/dl (6.3-8.2); Triglycerides 82 mg/dl (30-150); VLDL Cholesterol 16 mg/dL (0-40)
[2023-04-29 11:29] LABS: Direct LDL Cholesterol 43.15 mg/dL (100-129)
[2023-04-29 11:34] LABS: Free T4 (Free Thyroxine) 0.95 ng/dl (0.78-2.19)
[2023-04-29 11:48] LABS: Thyroid Stimulating Hormone 3.06 uIU/mL (0.465-4.68)
== END ==
PROVIDERS: PCP Physician Assistant; Visit Provider Internal Medicine
DX: R06.00 Dyspnea, unspecified (principal); R00.2 Palpitations; I49.1 Atrial premature depolarization; I49.3 Ventricular premature depolarization; I49.8 Other specified cardiac arrhythmias; E11.9 Type 2 diabetes mellitus without complications; I11.0 Hypertensive heart disease with heart failure; I50.20 Unspecified systolic (congestive) heart failure; I25.10 Atherosclerotic heart disease of native coronary artery without angina pectoris; R94.31 Abnormal electrocardiogram [ECG] [EKG]; I63.9 Cerebral infarction, unspecified; Z72.0 Tobacco use; Z95.1 Presence of aortocoronary bypass graft
CPT/HCPCS: 36415; 80048; 80061; 80076; 84439; 84443; 85025; 93270

== ENCOUNTER → 2023-08-05 10:30 | Outpatient (CLI) | payer OTHER, SELFPAY ==
[2023-08-05 19:26] LABS: Prostate Specific Ag Screen 0.4 ng/ml (0.0-4.0)
[2023-08-05 19:56] LABS: Hemoglobin A1C 6.1 % (4.0-6.0)
== END ==
LOC: LAB.DROPOF 08-06 10:31
PROVIDERS: PCP Physician Assistant; Visit Provider Physician Assistant
DX: E11.9 Type 2 diabetes mellitus without complications (principal); I49.8 Other specified cardiac arrhythmias; Z79.4 Long term (current) use of insulin; W57.XXXA Bitten or stung by nonvenomous insect and other nonvenomous arthropods, initial encounter; Z12.5 Encounter for screening for malignant neoplasm of prostate
CPT/HCPCS: 83036; G0103

== ENCOUNTER → 2023-09-17 23:41 | Outpatient (CLI) | payer OTHER, SELFPAY ==
[2023-09-17 17:51] LABS: Adenovirus,PCR Not Detected (NotDetected); Coronavirus 19, PCR Not Detected (NotDetected); Coronavirus 229E Not Detected (NotDetected); Coronavirus NL63 Not Detected (NotDetected); Coronavirus OC43 Not Detected (NotDetected); Coronovirus HKU1,PCR Not Detected (NotDetected); Human Metapneumovirus Not Detected (NotDetected); Influenza A, PCR Not Detected (NotDetected); Influenza AH1, 2009 Not Detected (NotDetected); Influenza AH1, PCR Not Detected (NotDetected); Influenza AH3,PCR Not Detected (NotDetected); Influenza B, PCR Not Detected (NotDetected); Parainfluenza 1, PCR Not Detected (NotDetected); Parainfluenza 2, PCR Not Detected (NotDetected); Parainfluenza 3, PCR Not Detected (NotDetected); Parainfluenza 4, PCR Not Detected (NotDetected); Respiratory Syncytial Virus Not Detected (NotDetected); Rhinovirus/Enterovirus Not Detected (NotDetected)
== END ==
LOC: LAB.DROPOF 23:41
PROVIDERS: PCP Physician Assistant; Visit Provider Family Medicine
DX: J02.9 Acute pharyngitis, unspecified (principal); R05.9 Cough, unspecified
CPT/HCPCS: 87581; 87632; 87635; 87798

== ENCOUNTER 2023-10-24 07:48 | Day surgery (SDC) | payer OTHER, SELFPAY ==
[2023-10-22 12:41] VITALS: BMI 32.8
[2023-10-24 08:02] VITALS: BP 160/79; PULSE 85; RESP 17; TEMP 36.3; O2SAT 97
[2023-10-24] MEDS: LACTATED RINGERS 1000ML 1,000 ML 25 ML IV (08:10)
[2023-10-24 08:56] VITALS: O2SAT 97
--- NOTE | 2023-10-24 09:14 | HMH.SCOPE ---
Procedure: Date: 10/24/23 Patient Date of :: 1965 Procedure Performed:: EGD & biopsies and dilation Indications:: Dysphagia Performing Provider:: Myke Garcia MD Referring Provider:: Bernice Garcia APRN Sedation:: Propofol Procedure:: The gastroscope was gently passed through the incisoral orifice into the oral cavity and under direct visualization the esophagus was intubated. The endoscope was passed down the esophagus, through the stomach, and into the duodenum. Color, texture, mucosa, and anatomy of the esophagus, stomach, and duodenum were carefully examined with the scope. Findings:: Oropharynx: normal Esophagus: normal, no strictures noted, dilated with 58F bougie EG Junction: intact at 40 cm Cardia: normal Fundus: normal Body: normal, full of large amount of food debris limiting visualization, random biopsies obtained Antrum: normal Duodenal bulb: normal, food debris Duodenum (second and third portion): normal Impression: Marked gastroparesis Symptomatic dysphagia treated with bougie dilation Specimens:: Gastric Recommendations:: Needs repeat EGD in 3-6 months to better visualize the remainder of the stomach which was not seen due to food debris Complications:: None Estimated blood obtained (mL): 0 Colonoscopy Component Colonoscopy Component Was a colonoscopy performed during today's procedure?: No
[2023-10-24 09:15] VITALS: BP 160/91; PULSE 91; RESP 18; TEMP 36.1; O2SAT 96
--- NOTE | 2023-10-24 09:19 | EXP.ANES.CKL ---
[facility] Disclaimer: The information contained in this section may have been updated after the patient was seen, as this information can be updated by other users. Medical History Coronary artery disease Diabetes mellitus Diabetes mellitus, type 2 Diabetic neuropathy Dizziness Dysphagia Hypertension Hypothyroidism Light sensitivity Neuropathy Obstructive Sleep Apnea-Hypopnea Syndrome Presence of external cardiac defibrillator Screening for prostate cancer Systolic heart failure Trigeminy Surgical History History of carpal tunnel release Hx of CABG Family History Other Family history of myocardial infarction Social History Smoking Status: Never smoker second hand exposure: No alcohol intake: never substance use type: denies use current occupational status: employed Travel in the last 8 weeks: Inside the [place] household members: spouse and children housing: house caffeine: No [facility] Anesthesia Checklist Patient Identification Patient Identification: Verbal (Name & ) Structural Data Admitted From: Home Planned Operative Procedure/s: egd Consent for Planned Operative Procedure(s) Verified: Yes NPO Status Verified Time NPO: 00:00 Additional verifications Anesthesia Reactions: No Airway Assessment Mallampati Score:: Class II C-Spine Mobility Assessed: Yes TMJ Mobility Assessed: Yes Dentition: Good Dentition Neurological Assessment Level of Consciousness: Awake, Alert and Appropriate Anesthesia Plan Anesthesia Risk discussed: Yes Anesthesia Plan: Verified ASA Class: III Anesthesia Type: MAC
[2023-10-24 09:25] VITALS: BP 128/79; PULSE 87; RESP 18; O2SAT 97
[2023-10-24 09:33] VITALS: BP 127/85; PULSE 83; RESP 18; O2SAT 95
[2023-10-24 09:48] VITALS: BP 149/90; PULSE 81; RESP 18; O2SAT 97
[2023-10-25 09:04] LABS: POC Glucose,Bedside 147 (70-110)
== END 2023-10-24 09:49 | disposition home or self-care (01) ==
PROVIDERS: PCP Physician Assistant; Visit Provider Internal Medicine Gastroenterology
PROC: 0DJ08ZZ Inspection of Upper Intestinal Tract, Via Natural or Artificial Opening Endoscopic (ICD-10-PCS; CPT 43235; principal; 2023-10-24 09:00)
DX: R13.10 Dysphagia, unspecified (principal); K31.84 Gastroparesis; E11.9 Type 2 diabetes mellitus without complications
CPT/HCPCS: 43248; 43239; 82962

== ENCOUNTER 2023-11-20 09:56 | Outpatient (CLI) | payer OTHER, SELFPAY ==
--- NOTE | 2023-11-20 10:01 | XR_ITS ---
FINAL REPORT CLINICAL HISTORY: range of motion..no truama..pain when raising arm over head COMPARISON: None FINDINGS: 3 views of the right shoulder were obtained. There is no prior exam for comparison. There is no fracture or dislocation. The joint space is preserved. Mild acromioclavicular degenerative changes present. Soft tissues are normal. IMPRESSION: No acute osseous abnormality of the right shoulder. Mild acromioclavicular degenerative change. Reviewed, Interpreted and Dictated by Cristy Pineda MD Transcribed by Herminia Shaw Authenticated and [facility]
== END 2023-11-20 23:59 ==
LOC: RAD 09:57
PROVIDERS: PCP Physician Assistant; Visit Provider Internal Medicine
DX: M25.511 Pain in right shoulder (principal)
CPT/HCPCS: 73030

== ENCOUNTER 2024-02-11 09:07 | Outpatient (CLI) | payer OTHER, SELFPAY ==
[2024-02-11 09:33] LABS: Blood Urea Nitrogen 21 mg/dl (9-20); Estimated Glomerular Filt Rate 87 ml/min (>60); GFR (African American) 105 ML/MIN (>60)
--- NOTE | 2024-02-11 09:49 | XR_ITS ---
FINAL REPORT TECHNIQUE: Chest PA & Lateral CLINICAL HISTORY: tobacco use. r/o implanted device for mri COMPARISON: None FINDINGS: 2 views of the chest were performed. Mild cardiomegaly is present. The patient has undergone a prior midline sternotomy. The lung whitehead are slightly underinflated. The mediastinum is within normal limits. There is no acute cardiopulmonary process. There are no pleural effusions. There is no pneumothorax. The bony thorax appears intact. IMPRESSION: No acute cardiopulmonary process. Mild cardiomegaly and prior midline sternotomy. Reviewed, Interpreted and Dictated by Elpidio Land MD Transcribed by eHrminia Shaw Authenticated and . [facility]
== END 2024-02-11 23:59 | disposition home or self-care (01) ==
PROVIDERS: PCP Physician Assistant; Visit Provider Physician Assistant
DX: I25.10 Atherosclerotic heart disease of native coronary artery without angina pectoris (principal); I42.8 Other cardiomyopathies; Z72.0 Tobacco use
CPT/HCPCS: 36415; 71046; 82565; 84520

== ENCOUNTER 2024-02-25 09:53 | Outpatient (CLI) | payer OTHER, SELFPAY ==
--- NOTE | 2024-02-25 09:54 | MR_ITS ---
APPROVED REPORT Lead Mechanic: CLINICAL INDICATION PVCs, HFrEF (LVEF 30% on TTE), history of CAD TECHNIQUE Image Acquisition: Cardiac magnetic resonance (CMR) was performed on Siemens Espree MRI 1.5T scanner. Software platform sequences were performed using the Siemens Wisr MR B19 platform. A set of three-plane, low-resolution, large [id number] localizers were initially acquired. Then axial, coronal, sagittal TrueFISP, as well as axial HASTE images, were obtained. These were followed by gated TrueFISP breathold cinematic sequences obtained in the short axis with 8 mm slices and 2 mm gaps, 2-chamber (vertical long axis), 3-chamber, 4-chamber (horizontal long axis). A bolus of contrast was injected intravenously with first-pass sequences obtained in the short axis and four-chamber planes. After approximately 10 minutes, a TI cell technician sequence was performed to determine the optimal TI time. Using the optimized TI time, delayed contrast enhancement segmented inversion???recovery TurboFLASH sequences were obtained in the short axis, 2-chamber, 3-chamber, and 4-chamber projections. 2D-velocity phase mapping was performed. Functional parameters were calculated by offline analysis on an independent workstation ([employer] Platform, [employer]). Contrast: ProHance??? (Gadoteridol) FINDINGS MORPHOLOGY AND FUNCTION Left ventricle: The left ventricle is normal in size. The indexed left ventricular end-diastolic volume (LVEDVi) is 80 ml/m2 (reference range 57-105 ml/m2 in males, 56-96 ml/m2 in females). There is mild reduction in left ventricular systolic function. There is normal left ventricular wall thickness. There is moderate hypokinesis of the mid to distal septal, anterior, and anteroseptal LV yousif. LVEF is calculated at 46.0% (reference range 57-77%). Right ventricle: The right ventricle is normal in size. The indexed right ventricular end-diastolic volume (RVEDVi) is 68 ml/m2 (reference range 61-121 ml/m2 in males, 48-112 ml/m2 in females). Normal right ventricular systolic function is present. RVEF is calculated at 53.0% (reference range 52-72% in males, 51-71% in females). Atria: The left atrium is normal in size. The maximum indexed left atrial volume is 41 ml/m2 (reference range 26-52 ml/m2 in males, 27-53 ml/m2 in females). The right atrium is normal in size. The maximum indexed right atrial volume is 20 ml/m2 (reference range 18-90 ml/m2). Aorta: The diameter of the aortic annulus is normal, measuring 23 mm (coronal view reference range 21-30 mm in males, 19-27 mm in females). The diameter of the aortic sinus is normal, measuring 28 mm (coronal view reference range 25-42 mm in males, 24-36 mm in females). The diameter of the sinotubular junction is normal, measuring 25 mm (coronal view reference range 18-32 mm in males, 18-28 mm in females). The diameters of the ascending and descending thoracic aorta are normal. Main pulmonary artery: The main pulmonary artery diameter is normal. Pericardium: The pericardial thickness is normal. The pericardial thickness measures 2.0 cm (normal < 4.0 cm). There is no pericardial effusion. VALVES The valvular morphologies in the visualized sequences appear normal. There is no significant valvular stenosis or regurgitation of the mitral, aortic, tricuspid, or pulmonic valve noted visually. Systolic anterior motion of the mitral valve is not visualized. Ratio of pulmonary to systemic flow, Qp:Qs ratio = 1.1 (normal < or = 1.2, hemodynamically significant shunt > 1.5), demonstrating no evidence of hemodynamically significant shunt. TISSUE CHARACTERIZATION Resting Perfusion: Abnormal myocardial blood flow at rest. Resting hypoperfusion is present in the mid to distal septal and anteroseptal LV yousif. Myocardial Fibrosis and/or edema: Abnormal gadolinium kinetics are present. There is subendocardial late gadolinium enhancement (LGE) noted in the mid to distal septal, anterior, and anterolateral LV yousif. This LGE pattern is suggestive of prior infarct. the LGE occupies approximately 25% of the total myocardial thickness, suggestive of underlying viability in the infarcted region. OTHER No other significant findings are noted. However, this exam is focused on the cardiac structure and function. IMPRESSION Normal LV size with mild reduction in LV systolic function. LVEDVi= 80 ml/m2 and LVEF= 46.0%. Moderate hypokinesis of the mid to distal septal, anterior, and anteroseptal LV yousif. Normal RV size with normal RV systolic function. RVEDVi= 68 ml/m2 and RVEF= 53.0%. No atrial enlargement. Subendocardial late gadolinium enhancement (LGE) noted in the mid to distal septal, anterior, and anterolateral LV yousif. This LGE pattern is suggestive of prior infarct. The LGE occupies approximately 25% of the total myocardial thickness, suggestive of underlying viability in the infarcted region. Resting hypoperfusion is present in the mid to distal septal and anteroseptal LV yousif. Ratio of pulmonary to systemic flow, Qp:Qs ratio = 1.1 (normal < or = 1.2, hemodynamically significant shunt > 1.5), demonstrating no evidence of hemodynamically significant shunt. Overall, this CMR demonstrates HFrEF (LVEF 46%) with mild reduction in LV systolic function likely due to ischemic cardiomyopathy. LGE pattern is suggestive of prior infarct in the LAD and possibly LCx territories. The scar tissue occupies < 50% of the total myocardial thickness in the corresponding region, suggestive of underlying viability. COMPARISON None CRITICAL RESULT None COMMUNICATION Per this written report The findings of this cardiac MR were reviewed, reported, and signed by Irineo Rivera MD (Modular Home Crew Member). Conclusion Electronically signed by : Suzy Rivera MD 02/27/2024 01:59:24
[2024-02-25] MEDS: SODIUM CHLORIDE 0.9% 10ML SYR (RAD ONLY) 10 ML IV (11:24)
[2024-02-25] MEDS: GADOTERIDOL INJ 10ML SYRINGE 4 ML IV (11:24)
[2024-02-25] MEDS: SODIUM CHLORIDE 0.9% 50ML BAG 25 ML IV (11:24)
[2024-02-25] MEDS: GADOTERIDOL INJ 20ML SYRINGE 20 ML IV (11:25)
== END 2024-02-25 23:59 | disposition home or self-care (01) ==
LOC: RAD 09:54
PROVIDERS: PCP Physician Assistant; Visit Provider Physician Assistant
DX: I42.8 Other cardiomyopathies (principal); I49.1 Atrial premature depolarization; I49.3 Ventricular premature depolarization; I49.8 Other specified cardiac arrhythmias; R94.31 Abnormal electrocardiogram [ECG] [EKG]; Z72.0 Tobacco use; Z95.1 Presence of aortocoronary bypass graft
CPT/HCPCS: 75561; A9576

== ENCOUNTER 2024-03-02 14:45 | Outpatient (CLI) | payer OTHER, SELFPAY ==
--- NOTE | 2024-03-02 14:45 | CT_ITS ---
FINAL REPORT CLINICAL HISTORY: Vertigo dizziness spells FINDINGS: Axial images of the head were obtained without contrast. Coronal reformatted images were also obtained.This study was performed with techniques to keep radiation doses as low as reasonably achievable (ALARA). Individualized dose reduction techniques using automated exposure control or adjustment of mA and/or kV according to the patient's size were employed. There is no evidence of intracranial hemorrhage or mass. The ventricular size is within normal limits. There is no evidence of shift of the midline structures. No abnormal extra axial fluid collection is identified. No skull abnormality is seen on the bone window images. IMPRESSION: No acute intracranial abnormality. Reviewed, Interpreted and Dictated by Talat Orta III, MD Transcribed by Edda Breen Authenticated and [facility]
== END 2024-03-02 23:59 | disposition home or self-care (01) ==
LOC: RAD 14:45
PROVIDERS: PCP Physician Assistant; Visit Provider Nurse Practitioner
DX: R42 Dizziness and giddiness (principal)
CPT/HCPCS: 70450

== ENCOUNTER 2024-03-03 15:00 | Outpatient (RCR) | payer OTHER, SELFPAY ==
--- NOTE | 2023-12-13 14:33 | HMH.OTOPEV ---
OT Inpatient Evaluation Rehab OT Outpatient Eval Start: 12/13/23 14:10 Freq: Status: Active Protocol: Document 12/13/23 14:11 MOISESANTHONY (Rec: 12/13/23 14:25 RAUL [id number]) E-signed By Laine Dolan, OT Outpatient Therapy Subjective History Subjective History 58 year old male referred to skilled OP OT services for right shoulder pain. X-ray taken on 11/20/23 with mild AC degenerative changes. >pain in the past year with no relief. PMH: Open heart surgery on ; DM Chief Complaint Pain Symptom Type Ache Symptoms Relieved By Nothing Symptoms Aggravated By Physical Activity Prior Functional Limitations None Current Functional Limitations Reaching,Lifting Symptom Description Constant and Continuous Level of pain today (0-10) 0 Pain scale - at its best (0-10) 0 Pain scale - at its worst (0-10) 6 Shoulder/Elbow Eval Shoulder Objective Measurements Shoulder ROM Right Shoulder Abduction Active Range of 90 Motion (degrees) Shoulder Flexion Active Range of Motion 130 (degrees) Query Text: Shoulder External Rotation Active Range 40 of Motion (degrees) Shoulder Internal Rotation Active Range 40 of Motion (degrees) Shoulder MMT Shoulder Abduction Strength Grade 3 Fair Shoulder Extension Strength Grade 3 Fair Shoulder Flexion Strength Grade 3 Fair Shoulder Horizontal Abduction Strength 3 Fair Grade Shoulder Horizontal Adduction Strength 3 Fair Grade Infraspinatus/Teres Minor Strength Grade 3 Fair Shoulder External Rotation Strength 3 Fair Grade Shoulder Internal Rotation Strength 3 Fair Grade Elbow Objective Measurements QuickDASH Activities Please rate your ability to do the following activities in the last week by selecting the number below the appropriate response. 1. Open a tight or new jar. Mild difficulty 2. Do heavy kosher dietary service supervisor (e.g., wash Mild difficulty yousif, floors). 3. Carry a shopping bag or briefcase. Mild difficulty 4. Wash your back. Moderate difficulty 5. Use a knife to cut food. No difficulty 6. Recreational activities in which you Moderate difficulty take some force or impact through your arm, shoulder, or hand (e.g., golf, hammering, tennis, etc.). 7. During the past week, to what extent Moderately has your arm, shoulder or hand problem interfered with your normal social activities with family, friends, neighbors or groups? 8. During the past week, were you Slightly limited limited in your work or other regular daily activites as a result of your arm, shoulder or hand problem? 9. Arm, shoulder or hand pain. Moderate 10. Tingling (pins and needles) in your None arm, shoulder or hand. 11. During the past week, how much Mild difficulty difficulty have you had sleeping because of the pain in your arm, shoulder or hand? Quick DASH 24 OT Outpatient Assessment Impairments Problems/Impairments Impaired Range of Motion, Impaired Strength,Subjective C /O Pain Prognosis Rehab Potential Good Clinical Impression Consistent with Diagnosis Yes Short Term Goals Number of Weeks 2 Increase Range of Motion Yes: Improve AROM of R UE shld flex: 140; abd: 120; er: 50; ir: 50 Increase Strength Yes: Improve R UE shld strength to 3+ to 4-/5 throughout Decrease Subjective C/O Pain Yes: 5/10 pain at worst Patient to be Ind w/ HEP Yes: AAROM Patient to be Ind w/ Advanced HEP Yes: Strengthening Improve Quick Dash Score Yes: 20 Detention Goals Number of Weeks 4 Increase Range of Motion Yes: Improve AROM of R UE shld flex: 150; abd: 140; er: 60; ir: 60 Increase Strength Yes: Improve R UE shld strength to 4-/5 throughout Decrease Subjective C/O Pain Yes: 4/10 pain at worst Patient to be Ind w/ HEP Yes: AROM Patient to be Ind w/ Advanced HEP Yes: Advance strengthening Improve Quick Dash Score Yes: 15 Outpatient Therapy Plan of Care Treatment Plan May Include Therapeutic Exercise Including Home Yes Exercise Program Manual Therapy Techniques Yes Therapeutic Activities to Return to Yes Previous Functional/Work Level Thermal Modalities Yes Electrical Stimulation Yes Ultrasound/Phonophoresis Yes Iontophoresis Yes Eval/Re-Eval Yes Aquatic Therapy Yes Frequency Times per week 2x/wk Duration Number of Weeks 4 weeks Addendums This patient is a candidate for social No or vocational rehab? Patient/Guardian verbally acknowledges Yes understanding of treatment program and consents to further treatment? Patient/Guardian verbally acknowledges Yes understanding of diagnosis, prognosis and goals for treatment? Eval Complexity OT Charge 29987 - Low Complexity PHYSICIAN CERTIFICATION: I certify the specified therapy services for Raj Haji are required, authorized, and reviewed every 30 days.
== END 2024-03-03 16:20 | disposition home or self-care (01) ==
LOC: OT 15:00
PROVIDERS: Visit Provider Physician Assistant
DX: M25.511 Pain in right shoulder (principal); G89.29 Other chronic pain
CPT/HCPCS: 97010; 97014; 97035; 97110; 97140; 97164; 97165; 97530; G0283

== ENCOUNTER 2024-03-04 14:22 | Outpatient (POV) | payer OTHER, SELFPAY | END 2024-03-04 23:59 | disposition home or self-care (01) | LOC: SC 14:22 | PROVIDERS: Visit Provider Specialist/Technologist | DX: Z00.00 Encounter for general adult medical examination without abnormal findings (principal) ==

== ENCOUNTER 2024-03-17 18:00 | Outpatient (CLI) | payer OTHER, SELFPAY ==
[2024-03-17 18:49] LABS: Basophils # 0.1 K/mm3 (0-0.2); Basophils % 0.6 % (0.1-2.0); Eosinophils # 0.1 K/mm3 (0.0-0.4); Eosinophils % 1.3 % (0.1-12.0); Hematocrit 49.2 % (42.0-52.0); Hemoglobin 16.1 g/dL (14.1-18.0); Lymphocytes # 2.4 K/mm3 (0.7-4.5); Lymphocytes % 21.2 % (10-50); Mean Corpuscular HGB Conc 32.7 g/dL (31.8-35.4); Mean Corpuscular Hemoglobin 31.4 pg (27.0-31.2); Mean Corpuscular Volume 95.9 fl (80-94); Mean Platelet Volume 9.5 fl (7.4-10.4); Monocytes # 0.5 K/mm3 (0.1-1.0); Monocytes % 4.5 % (1.7-9.3); Neutrophils # 8.3 K/mm3 (1.8-7.8); Neutrophils % 72.4 % (37.0-80.0); Platelet Count 348 K/mm3 (142-424); Red Blood Count 5.14 M/mm3 (4.60-6.20); Red Cell Distribution Width 13.6 % (11.5-17.5); White Blood Count 11.4 K/mm3 (4.8-10.8)
[2024-03-17 19:22] LABS: Alanine Aminotransferase 42 U/L (12-78); Albumin Level 4.5 g/dl (3.5-5.0); Albumin/Globulin Ratio 1.7 (1.1-1.8); Alkaline Phosphatase 92 U/L (38-126); Anion Gap 16.7 mEq/L (5-15); Aspartate Amino Transferase 37 U/L (17-59); Bilirubin,Total 0.9 mg/dl (0.2-1.3); Blood Urea Nitrogen 24 mg/dl (9-20); Calcium 9.5 mg/dl (8.4-10.2); Carbon Dioxide 27 mmol/L (22.0-30.0); Chloride 100 mmol/L (98-107); Chol/HDL Ratio 4.2 (1-3.5); Cholesterol 126 mg/dl (140-200); Estimated Glomerular Filt Rate 87 ml/min (>60); GFR (African American) 105 ML/MIN (>60); Globulin 2.7 g/dL (1.3-3.2); Glucose 274 mg/dl (74-100); HDL Cholesterol 30 mg/dl (40-60); Magnesium 1.8 mg/dl (1.6-2.3); Potassium 4.7 mmoL/L (3.5-5.1); Sodium 139 mmol/L (136-145); Total Protein,Serum 7.2 g/dl (6.3-8.2); Triglycerides 150 mg/dl (30-150); VLDL Cholesterol 30 mg/dL (0-40)
[2024-03-17 19:33] LABS: Direct LDL Cholesterol 66.09 mg/dL (100-129)
[2024-03-17 19:44] LABS: 25-OH Vitamin D, Total 25.9 ng/mL (30-100)
[2024-03-17 20:13] LABS: Vitamin B12 375 pg/mL (239-931)
[2024-03-17 21:22] LABS: Thyroid Stimulating Hormone 2.43 uIU/mL (0.465-4.68)
== END 2024-03-17 23:59 | disposition home or self-care (01) ==
LOC: LAB.DROPOF 03-18 09:21
PROVIDERS: PCP Physician Assistant; Visit Provider Physician Assistant
DX: E10.8 Type 1 diabetes mellitus with unspecified complications (principal); R20.0 Anesthesia of skin; R20.2 Paresthesia of skin; R45.4 Irritability and anger
CPT/HCPCS: 80050; 80053; 80061; 82306; 82607; 83036; 83735; 84443; 85025

== ENCOUNTER 2024-04-22 08:56 | Day surgery (SDC) | payer OTHER, SELFPAY ==
[2024-04-22] MEDS: LACTATED RINGERS 1000ML 1,000 ML 25 ML IV (09:25)
[2024-04-22 09:31] VITALS: BP 172/85; PULSE 47; RESP 18; TEMP 36.1; O2SAT 99; BMI 35.2
[2024-04-22 09:37] LABS: POC Glucose,Bedside 187 (70-110)
--- NOTE | 2024-04-22 10:24 | P.PNANES_ITS ---
[facility] Disclaimer: The information contained in this section may have been updated after the patient was seen, as this information can be updated by other users. Medical History History of UT (myocardial infarction) Acute dysfunction of both eustachian tubes Bilateral serous otitis media Bilateral impacted cerumen Impacted cerumen Vertigo Gastroparesis Screening for prostate cancer Trigeminy Neuropathy Dizziness Light sensitivity Dysphagia Presence of external cardiac defibrillator Coronary artery disease Systolic heart failure Diabetic neuropathy Obstructive Sleep Apnea-Hypopnea Syndrome Hypertension Diabetes mellitus, type 2 Hypothyroidism Diabetes mellitus Surgical History Hx of CABG History of carpal tunnel release Family History Father Cancer Other Family history of myocardial infarction Social History Smoking Status: Former smoker tobacco type: cigarettes packs per day: 1 how long ago did patient quit smoking: January 2023 second hand exposure: No alcohol intake: never substance use type: denies use current occupational status: retired Travel in the last 8 weeks: None household members: spouse and children housing: house caffeine: No physical activity: walking do you feel safe at home: Yes victim of physical abuse: No victim of emotional abuse: No victim of sexual abuse: No would you like helpful sources: No [facility] Anesthesia Checklist Patient Identification Patient Identification: Arm Band and Verbal (Name & ) Structural Data Admitted From: Home Planned Operative Procedure/s: EGD Consent for Planned Operative Procedure(s) Verified: Yes Verified Documents: Surgical Consent and History and Physical NPO Status Verified Time NPO: 00:00 Chart Verification Results Verified: CBC and BMP Additional verifications Anesthesia Reactions: No Airway Assessment Mallampati Score:: Class II C-Spine Mobility Assessed: Yes TMJ Mobility Assessed: Yes Dentition: Good Dentition Neurological Assessment Level of Consciousness: Awake Hx Seizures: No Numbness or tingling in extremities: No Anesthesia Plan Anesthesia Risk discussed: Yes Anesthesia Plan: Verified ASA Class: III Anesthesia Type: MAC
[2024-04-22 10:30] VITALS: O2SAT 99
--- NOTE | 2024-04-22 10:41 | HMH.SCOPE ---
Procedure: Date: 04/22/24 Patient Date of :: 1965 Procedure Performed:: EGD Indications:: The patient is a 59-year-old who presents for EGD evaluation of dysphagia symptom. The patient had an EGD in October. The patient had a large amount of food in the stomach obscuring adequate evaluation at that time. The patient had use of Ozempic then. The patient is now off Ozempic Performing Provider:: Joo Mcdermott MD Referring Provider:: Bernice Garcia APRN Sedation:: See RN records Procedure:: The gastroscope was gently passed through the incisoral orifice into the oral cavity and under direct visualization the esophagus was intubated. The endoscope was passed down the esophagus, through the stomach, and into the duodenum. Color, texture, mucosa, and anatomy of the esophagus, stomach, and duodenum were carefully examined with the scope. Findings:: The upper third and middle third of the esophagus appeared normal. There was an irregular Z-line measured at 40 cm. There were 2 tongues of salmon-colored mucosa, the longest extent was at least 1 cm. Biopsies were obtained with a cold forceps for histology. There was inflammation characterized by erythema in the stomach (biopsies were obtained on the last EGD). The examined duodenum appeared normal. The gastroscope was withdrawn and empiric esophageal dilatation was performed with a Viveros dilator at 56 Fr. Impression: Irregular Z-line with two tongues of salmon-colored mucosa within the distal esophagus Mild gastritis Recommendations:: Await pathology If dysphagia symptoms does not improve after empiric esophageal dilatation, then consider barium esophagram with tablet Follow-up with referring provider as previously scheduled. Complications:: None Estimated blood obtained (mL): 0 Colonoscopy Component Colonoscopy Component Was a colonoscopy performed during today's procedure?: No
[2024-04-22 10:45] VITALS: BP 98/64; PULSE 72; RESP 18; TEMP 36.1; O2SAT 97
[2024-04-22 10:55] VITALS: BP 105/59; PULSE 73; RESP 18; O2SAT 98
[2024-04-22 11:05] VITALS: BP 105/68; PULSE 74; RESP 18; O2SAT 96
[2024-04-22 11:15] VITALS: BP 105/70; PULSE 72; RESP 18; O2SAT 98
== END 2024-04-22 11:15 | disposition home or self-care (01) ==
PROVIDERS: Internal Medicine Gastroenterology; PCP Physician Assistant; Visit Provider Internal Medicine
PROC: 0DJ08ZZ Inspection of Upper Intestinal Tract, Via Natural or Artificial Opening Endoscopic (ICD-10-PCS; CPT 43235; principal; 2024-04-22 10:00)
DX: R13.10 Dysphagia, unspecified (principal)
CPT/HCPCS: 43239; 43450; 82962; J7120

== ENCOUNTER 2024-06-05 09:34 | Outpatient (CLI) | payer OTHER, SELFPAY ==
--- NOTE | 2024-06-05 09:38 | FL_ITS ---
FINAL REPORT CLINICAL HISTORY: .50 SECONDS FT 43.51MGY 565.57DAP DYSPHAGIA WITH SOLIDS FINDINGS: ESOPHAGRAM HISTORY: Abdominal pain, nausea. PROCEDURE: The patient ingested barium. Effervescent crystals were also administered. Spot and overhead films were obtained. FINDINGS: The esophagus is normal. There is no hiatal hernia. There is no gastroesophageal reflux. Peristalsis is normal. Incidental note is made of a duodenal diverticulum. IMPRESSION: Normal esophagram. Fluoroscopy time: 50 seconds Radiation exposure in Reference air Kerma: 43.51 mGy Fluoro dose: 565.57 DAP in uGym[employer] Films reviewed , interpreted and dictated by Dr. Orta Transcribed by Hermelindo Loredo PA-C. Reviewed, Interpreted and Dictated by Talat Orta III, MD Transcribed by RONNY Romero Authenticated and . [facility]
[2024-06-05] MEDS: BARIUM SULFATE (E-Z-HD 340GM);135ML BOTTLE 135 ML PO (10:40)
[2024-06-05] MEDS: E-Z-GASII EFFERVESCENT GRANULES;1PK 1 EACH PO (10:40)
[2024-06-05] MEDS: BARIUM SULFATE(LIQUID E-Z-PAQUE);355ML BOTTLE 355 ML PO (10:40)
== END 2024-06-05 23:59 | disposition home or self-care (01) ==
LOC: RAD 09:35
PROVIDERS: PCP Physician Assistant; Visit Provider Nurse Practitioner
DX: R13.19 Other dysphagia (principal); Z98.890 Other specified postprocedural states
CPT/HCPCS: 74220

== ENCOUNTER 2024-07-21 08:27 | Outpatient (CLI) | payer OTHER, SELFPAY ==
--- NOTE | 2024-07-21 08:31 | CA_ITS ---
APPROVED REPORT EXAM: Comprehensive 2D, Doppler, and color-flow Echocardiogram Directional Drill Operator: Mary Bustillos RT(R) Ht: 5 ft 10 in Wt: 242lbs BSA: 2.26 BP: 145/61 mmHg Indications: Hx of CABG x 4, CHF, HFrEF, hx bigeminy, HTN, edema, ex smoker, DM, EF on echo 02/15/23 40-50%. Echo Enhancing Agent Indication: Endocardial border delineation Agent(s) / Amount(s) Used: Definity 2 cc 2D Dimensions LVEF (Castillo's) 58.00 % M: 52 - 72 LV Volume 133.50 mL M: 62 - 150 LV Volume Index 58.8 mL/m2 M: 34 - 74 LA Volume 32.30 mL LA Volume Index 14.23 mL/m2 (M/F) 16-34 EF AP4 72.40 % EF AP2 42.9 % EF BP 58.0 % GL Strain -15.3 % M-Mode Dimensions RVDd 3.14 cm (0.9-2.6) LA Diam 4.08 cm (1.9-4.0) LVDd 5.27 cm (3.5-5.7) LVDs 4.21 cm (3.5-5.7) IVSd 0.95 cm (0.6-1.1) PWd 0.83 cm (0.6-1.1) EF (Teich) 40.90% FS 20.10% EDV (Teich) 133.60 mL ESV (Teich) 79.00 mL LV Diastology E Decel Time 260 (160-240 msec) E/A Ratio 0.95 Mitral Valve MV A Velocity 114.0 (40-130 cm/s) E/A Ratio 0.95 Left Ventricle The left ventricle is normal size. The left ventricular systolic function is mildly reduced. Proximal septal thickening is noted. There is mild global hypokinesis present. There is moderate hypokinesis of the distal anterior, anteroseptal, and inferior septal LV yousif, as well as the LV apex. Grade 1 diastolic dysfunction is present. No left ventricle thrombus noted on this study. LVEF is 45%. Right Ventricle The right ventricle is normal size. The right ventricular systolic function is normal. Atria The left atrium size is normal. The right atrium size is normal. There is no Doppler evidence of interatrial shunt. Aortic Valve The aortic valve is mildly thickened. There is no aortic valvular stenosis. Trace aortic regurgitation is present. Mitral Valve The mitral valve leaflets are mildly thickened. Trace mitral regurgitation. No evidence of mitral valve stenosis. Tricuspid Valve The tricuspid valve leaflets are thin and pliable. Trace tricuspid regurgitation. There is insufficient TR jet to estimate RVSP. Pulmonic Valve The pulmonary valve is normal in structure. Trace pulmonic regurgitation. Great Vessels The aortic root is normal in size. IVC is normal in size and collapses >50% with inspiration. Pericardium There is no pericardial effusion. Conclusion Mildly reduced LV systolic function (LVEF 45%). Moderate hypokinesis of the distal anterior, anteroseptal, and inferior septal LV yousif, as well as the LV apex. No significant valvular stenosis or regurgitation. Electronically signed by : Suzy Rivera MD 07/26/2024 02:29:01
== END 2024-07-21 23:59 | disposition home or self-care (01) ==
LOC: RT 08:29
PROVIDERS: PCP Physician Assistant; Visit Provider Physician Assistant
DX: I49.1 Atrial premature depolarization (principal); I49.3 Ventricular premature depolarization; I11.0 Hypertensive heart disease with heart failure; I50.23 Acute on chronic systolic (congestive) heart failure; I25.10 Atherosclerotic heart disease of native coronary artery without angina pectoris; R42 Dizziness and giddiness; R13.19 Other dysphagia; G62.9 Polyneuropathy, unspecified; R94.31 Abnormal electrocardiogram [ECG] [EKG]; Z95.1 Presence of aortocoronary bypass graft
CPT/HCPCS: 93306

== ENCOUNTER 2024-08-10 11:28 | Day surgery (SDC) | payer OTHER, SELFPAY ==
[2024-07-31 11:15] VITALS: BMI 34.7
[2024-08-10 12:32] VITALS: BP 165/79; PULSE 85; RESP 18; TEMP 36.3; O2SAT 97
--- NOTE | 2024-08-10 12:47 | EXP.ANES.CKL ---
[facility] Disclaimer: The information contained in this section may have been updated after the patient was seen, as this information can be updated by other users. Medical History GERD (gastroesophageal reflux disease) History of PR (myocardial infarction) Acute dysfunction of both eustachian tubes Bilateral serous otitis media Bilateral impacted cerumen Impacted cerumen Vertigo Gastroparesis Screening for prostate cancer Trigeminy Neuropathy Dizziness Light sensitivity Dysphagia Presence of external cardiac defibrillator Coronary artery disease Systolic heart failure Diabetic neuropathy Obstructive Sleep Apnea-Hypopnea Syndrome Hypertension Diabetes mellitus, type 2 Hypothyroidism Diabetes mellitus Surgical History History of esophagogastroduodenoscopy (EGD) History of colonoscopy Hx of CABG History of carpal tunnel release Family History Father Cancer Grandfather Cancer Other Family history of myocardial infarction Social History Smoking Status: Former smoker tobacco type: cigarettes packs per day: 1 how long ago did patient quit smoking: January 2023 second hand exposure: No alcohol intake: never substance use type: denies use current occupational status: retired Travel in the last 8 weeks: None household members: spouse and children housing: house caffeine: No physical activity: walking do you feel safe at home: Yes victim of physical abuse: No victim of emotional abuse: No victim of sexual abuse: No would you like helpful sources: No [facility] Anesthesia Checklist Patient Identification Patient Identification: Arm Band and Verbal (Name & ) Structural Data Admitted From: Home Planned Operative Procedure/s: Colonoscopy Consent for Planned Operative Procedure(s) Verified: Yes Verified Documents: Surgical Consent and History and Physical NPO Status Verified Time NPO: 00:00 Additional verifications Anesthesia Reactions: No Airway Assessment Mallampati Score:: Class II C-Spine Mobility Assessed: Yes TMJ Mobility Assessed: Yes Dentition: Good Dentition Neurological Assessment Level of Consciousness: Awake Hx Seizures: No Numbness or tingling in extremities: Yes Anesthesia Plan Anesthesia Risk discussed: Yes Anesthesia Plan: Verified ASA Class: III Anesthesia Type: MAC
[2024-08-10 13:15] VITALS: O2SAT 98
--- NOTE | 2024-08-10 13:21 | EXP.HP ---
History of Present Illness *Admission Date: 08/10/24 *Reason for visit:: Personal history of adenomatous colon polyps *History of present illness: Mr. Haji is a 59-year-old gentleman who is here for surveillance colonoscopy secondary to a personal history of adenomatous polyps. The examination is deemed medically necessary for colonoscopy. The patient has been seen, interviewed and examined prior to the procedure by both myself and the anesthesia provider. [facility] Disclaimer: The information contained in this section may have been updated after the patient was seen, as this information can be updated by other users. Medical History GERD (gastroesophageal reflux disease) History of AR (myocardial infarction) Acute dysfunction of both eustachian tubes Bilateral serous otitis media Bilateral impacted cerumen Impacted cerumen Vertigo Gastroparesis Screening for prostate cancer Trigeminy Neuropathy Dizziness Light sensitivity Dysphagia Presence of external cardiac defibrillator Coronary artery disease Systolic heart failure Diabetic neuropathy Obstructive Sleep Apnea-Hypopnea Syndrome Hypertension Diabetes mellitus, type 2 Hypothyroidism Diabetes mellitus Surgical History History of esophagogastroduodenoscopy (EGD) History of colonoscopy Hx of CABG History of carpal tunnel release Family History Father Cancer Grandfather Cancer Other Family history of myocardial infarction Social History Smoking Status: Former smoker tobacco type: cigarettes packs per day: 1 how long ago did patient quit smoking: January 2023 second hand exposure: No alcohol intake: never substance use type: denies use current occupational status: retired Travel in the last 8 weeks: None household members: spouse and children housing: house caffeine: No physical activity: walking do you feel safe at home: Yes victim of physical abuse: No victim of emotional abuse: No victim of sexual abuse: No would you like helpful sources: No Other Medical History Have you received the Flu Vaccine for this season: No Have you received the Pneumonia Vaccine: No Review of Systems Review of Systems Review of systems (narrative): Negative *Cardiovascular Comments: Negative *Gastrointestinal Comments: Negative *Genitourinary Comments: Negative *Musculoskeletal Comments: Negative *Neurologic Comments: Negative Meds Home Medications and Allergies Home Medications ?Medication ?Instructions ?Recorded ?Confirmed ?Type blood sugar diagnostic #10 ea 05/17/20 08/10/24 History blood-glucose meter #1 ea 05/17/20 08/10/24 History lancets 33 gauge #100 ea 05/17/20 08/10/24 History blood-glucose meter,continuous #1 ea 03/04/23 08/10/24 Rx (Dexcom G7 Laser Print Operator) aspirin 81 mg chewable tablet See Rx Instructions .Route 12/03/23 08/10/24 Rx .COMPLEX ANTIPLATELET #90 tabs atorvastatin 80 mg tablet (Lipitor) 80 mg PO HS #90 tabs 12/03/23 08/10/24 Rx ertugliflozin 15 mg tablet See Rx Instructions .Route 12/03/23 08/10/24 Rx (Steglatro) .COMPLEX #90 tabs insulin NPH-regular 70-30 U-100 10 unit (0.1 mL) SQ BID #15 mL 12/03/23 08/10/24 Rx insulin 100 unit/mL subcutaneous pen (Humulin 70/30 U-100 KwikPen) insulin glargine 100 unit/mL (3 15 unit (0.15 mL) SQ HS Diabetes 12/03/23 08/10/24 Rx mL) subcutaneous pen (Lantus #15 mL Solostar U-100 Insulin) levothyroxine 25 mcg tablet 25 mcg PO DAILY THYROID #90 tabs 12/03/23 08/10/24 Rx metformin 1,000 mg tablet 1,000 mg PO BID Diabetes #180 tabs 12/03/23 08/10/24 Rx omeprazole 40 mg capsule,delayed 40 mg PO DAILY PPI #90 caps 12/03/23 08/10/24 Rx release furosemide 20 mg tablet (Lasix) 20 mg PO DAILY PRN edema #90 tabs 02/20/24 08/10/24 Rx gabapentin 600 mg tablet See Rx Instructions .Route 03/04/24 08/10/24 Rx .COMPLEX #90 tabs cariprazine 1.5 mg capsule 1.5 mg PO DAILY #30 caps 03/17/24 08/10/24 Rx (Vraylar) blood-glucose sensor (Dexcom G7 #3 ea 04/06/24 08/10/24 Rx Sensor device) pen needle, diabetic 31 gauge x #100 ea 04/06/24 08/10/24 Rx 3/16 (BD Ultra-Fine Mini Pen Needle) dofetilide 500 mcg capsule 500 mcg PO BID 05/28/24 08/10/24 History magnesium oxide 400 mg (241.3 mg 400 mg PO DAILY 05/28/24 08/10/24 History magnesium) tablet potassium chloride 20 mEq 20 meq PO ONCE 05/28/24 08/10/24 History tablet,extended release metoclopramide HCl 10 mg tablet 10 mg PO ONCE 30 days #30 tabs 06/10/24 08/10/24 Rx metoprolol succinate 50 mg 50 mg PO DAILY #30 tabs 06/29/24 08/10/24 Rx tablet,extended release 24 hr (Toprol XL) sacubitril 97 mg-valsartan 103 mg 1 tab PO BID #60 tabs 06/29/24 08/10/24 Rx tablet (Entresto) peg 3350-electrolytes 236 240 ml PO Q10M colonscopy #4,000 mL 07/31/24 08/10/24 Rx gram-22.74 gram-6.74 gram-5.86 gram solution (Golytely) New Prescriptions to Start Prescriptions: Allergies Allergy/AdvReac Type Severity Reaction Status Date / Time No Known Allergies Allergy Verified 08/10/24 12:58 Exam Data for Last 24 hours Vital signs and Labs for Last 24 Hours: Temp Pulse Resp BP Pulse Ox O2 Del Method O2 Flow Rate 97.4 F L 85 18 165/79 H 97 Nasal Cannula 5 08/10/24 12:32 08/10/24 12:32 08/10/24 12:32 08/10/24 12:32 08/10/24 12:32 08/10/24 13:15 08/10/24 13:15 *Routine HEENT Exam Head: Present normocephalic Eye: Present EOMI and PERRL ENT: Present mucous membranes moist *Routine Neck Exam Neck: Present supple *Routine Respiratory Exam Respiratory: Present CTA bilaterally *Routine Cardiovascular Exam Cardiovascular: Present RRR *Routine Abdominal Exam Abdominal: Present soft and normoactive bowel sounds; Absent tenderness *Routine Rectal Exam Rectal:: deferred *Routine Genitalia Exam Genitalia:: deferred *Routine Extremities Exam Extremities: Absent cyanosis, clubbing or edema *Routine Skin Exam Skin: Present warm; Absent rash *Routine Neurological Exam Neurological: Present alert and oriented X3 Assessment and Plan *Assessment and plan (1) Personal history of adenomatous and serrated colon polyps: Status: Acute Category: Medical Code(s): Z86.0101 - Personal history of adenomatous and serrated colon polyps Plan A/P: 1. Personal history of adenomatous colon polyps is the preprocedural diagnosis. The patient will be anesthetized/sedated using MAC sedation. The patient has been seen and examined. Cardiac and lung assessment prior to the examination is stable. Proceed with planned colonoscopy
--- NOTE | 2024-08-10 13:23 | P.PCN_ITS ---
[facility] Procedure Note Date: 08/10/24 Time: 13:41 Procedure Note:: Colonoscopy Procedure Report: Colonoscopy with cold snare polypectomy Endoscopist: Sandro Hansen II, MD Referring physician: Ghazala Gomez Date of Procedure: August 10, 2024 Equipment: Olympus 190 variable stiffness pediatric colonoscope Sedation: MAC sedation Indication: Mr. Haji is a 59-year-old gentleman with a personal history of adenomatous colon polyps. The patient had a colonoscopy in 2015 (Talat Da Silva) and had a single tubular adenoma removed. His last colonoscopy was July 2019 and he had a couple of polyps removed according to the patient. He reports no abdominal pain, weight loss, change in his bowel habits or rectal bleeding. He does state that his paternal grandfather had colon cancer. Procedure: Prior to the procedure, a history and physical exam was performed, and patient's medications and allergies were reviewed. The risks, benefits and alternatives of the sedation and procedure were discussed with the patient. All questions were answered and informed consent was obtained. The patient was brought to the procedure room. Patient identification and proposed procedure were verified by the physician and the nurse. The patient was placed in a left lateral decubitus position and the scope was passed under direct vision. Throughout the procedure, the patient's blood pressure, pulse, and oxygen saturations were monitored continuously. The colonoscopy was accomplished without difficulty. The patient tolerated the procedure well. Findings: On digital rectal examination there was normal rectal tone. There were no external hemorrhoids. The colonoscope was introduced through the anal canal to the rectum and advanced to the cecum. The ileocecal valve and appendiceal orifice were identified. The scope was advanced a short distance into the ileum which appeared grossly normal. The scope was then withdrawn into the colon. There was a small 4 mm polyp in the ascending colon removed via cold snare polypectomy. The remaining cecum, ascending, transverse, descending, sigmoid and rectum were grossly normal. There were no other mucosal abnormalities identified. Upon retroflexion within the rectum there were grade 1-2 internal hemorrhoids.The preparation was excellent throughout with [place] Preparation Score of 9. The cecal time was 10 minutes. Impression: 1. Diminutive ascending colon polyp (4 mm) 2. Grade 1-2 internal hemorrhoids Plan: I will follow-up the polyp histology and recommend repeat surveillance colonoscopy again in 7 to 10 years. Those persons that constitute having a stronger family history of colorectal cancer are those with a first-degree relative (parent, sibling, or child) diagnosed with colon cancer when they were younger than 50, or if more than one first-degree relative is affected. Persons with a second-degree relative (grandparent, uncle or aunt) with diagnosis of colon cancer especially over age 60 are not deemed to be at greater risk because most colon cancers are sporadic (environmental and other factors) and are not hereditary. Only about 5 to 10 percent of colon cancer is hereditary.
[2024-08-10 13:42] VITALS: BP 101/64; PULSE 74; RESP 16; O2SAT 97
[2024-08-10 13:52] VITALS: BP 98/55; PULSE 74; RESP 16; O2SAT 98
[2024-08-10 14:02] VITALS: BP 115/70; PULSE 76; RESP 18; O2SAT 97
[2024-08-10 14:09] VITALS: BP 129/79; PULSE 82; RESP 18; O2SAT 98
[2024-08-11 11:13] LABS: POC Glucose,Bedside 174 (70-110)
== END 2024-08-10 14:10 | disposition home or self-care (01) ==
PROVIDERS: PCP Physician Assistant; Visit Provider Internal Medicine Gastroenterology
PROC: (CPT 45385; principal; 2024-08-10 13:30)
DX: K63.5 Polyp of colon (principal); K64.8 Other hemorrhoids; Z86.0101 Personal history of adenomatous and serrated colon polyps; Z09 Encounter for follow-up examination after completed treatment for conditions other than malignant neoplasm
CPT/HCPCS: 45385; 82962

== ENCOUNTER 2024-09-08 13:52 | Outpatient (CLI) | payer OTHER, SELFPAY ==
--- NOTE | 2024-09-08 14:00 | XR_ITS ---
FINAL REPORT CLINICAL HISTORY: bilateral carpal tunnel FINDINGS: LEFT HAND Three views demonstrate no acute fracture or dislocation. There are some mild diffuse degenerative change of the DIP and PIP joints. There is an old volar plate fracture of the third middle phalanx. There is also an old healed fifth metacarpal fracture. The soft tissues are unremarkable. IMPRESSION: Degenerative changes without acute process. Reviewed, Interpreted and Dictated by Mack Combs MD Transcribed by Cece Oconnell Authenticated and [facility]
--- NOTE | 2024-09-08 14:00 | XR_ITS ---
FINAL REPORT CLINICAL HISTORY: bilateral carpal tunnel FINDINGS: RIGHT HAND Three views demonstrate no acute fracture or dislocation. The visualized joint spaces are normally aligned. The soft tissues are unremarkable. IMPRESSION: No acute bony abnormality. Reviewed, Interpreted and Dictated by Mack Combs MD Transcribed by Cece Oconnell Authenticated and [facility]
== END 2024-09-08 23:59 | disposition home or self-care (01) ==
LOC: RAD 13:54
PROVIDERS: PCP Physician Assistant; Visit Provider Orthopaedic Surgery
DX: G56.03 Carpal tunnel syndrome, bilateral upper limbs (principal)
CPT/HCPCS: 73130

== ENCOUNTER 2024-09-22 12:22 | Outpatient (CLI) | payer OTHER, SELFPAY ==
[2024-09-22 13:20] VITALS: BMI 33.0
[2024-09-22 14:10] LABS: Basophils # 0.1 K/mm3 (0-0.2); Basophils % 0.7 % (0.1-2.0); Eosinophils # 0.2 K/mm3 (0.0-0.4); Eosinophils % 2.7 % (0.1-12.0); Hematocrit 43.6 % (42.0-52.0); Lymphocytes # 2.6 K/mm3 (0.7-4.5); Lymphocytes % 33.3 % (10-50); Mean Corpuscular HGB Conc 34.4 g/dL (31.8-35.4); Mean Corpuscular Hemoglobin 31.6 pg (27.0-31.2); Mean Platelet Volume 9.8 fl (7.4-10.4); Monocytes # 0.5 K/mm3 (0.1-1.0); Neutrophils # 4.4 K/mm3 (1.8-7.8); Neutrophils % 56.8 % (37.0-80.0); Platelet Count 313 K/mm3 (142-424); Red Blood Count 4.74 M/mm3 (4.60-6.20); Red Cell Distribution Width 12.1 % (11.5-17.5); White Blood Count 7.7 K/mm3 (4.8-10.8)
[2024-09-22 14:12] LABS: Alanine Aminotransferase 31 U/L (12-78); Albumin Level 4.3 g/dl (3.5-5.0); Albumin/Globulin Ratio 1.7 (1.1-1.8); Alkaline Phosphatase 103 U/L (38-126); Anion Gap 13.7 mEq/L (5-15); Aspartate Amino Transferase 36 U/L (17-59); Bilirubin,Total 0.7 mg/dl (0.2-1.3); Blood Urea Nitrogen 18 mg/dl (9-20); Calcium 9.3 mg/dl (8.4-10.2); Carbon Dioxide 31 mmol/L (22.0-30.0); Chloride 99 mmol/L (98-107); Creatinine Clearance Estimated 132 mL/min (50-200); Estimated Glomerular Filt Rate 87 ml/min (>60); GFR (African American) 105 ML/MIN (>60); Globulin 2.6 g/dL (1.3-3.2); Glucose 258 mg/dl (74-100); Potassium 4.7 mmoL/L (3.5-5.1); Sodium 139 mmol/L (136-145); Total Protein,Serum 6.9 g/dl (6.3-8.2)
== END 2024-09-22 23:59 | disposition home or self-care (01) ==
LOC: PREOP 12:23
PROVIDERS: Physician Assistant Surgical; PCP Physician Assistant; Visit Provider Orthopaedic Surgery
DX: G56.02 Carpal tunnel syndrome, left upper limb (principal)
CPT/HCPCS: 80053; 85025

== ENCOUNTER 2024-10-12 09:31 | Day surgery (SDC) | payer OTHER, SELFPAY ==
[2024-10-12 09:40] VITALS: BMI 33.0
[2024-10-12 09:52] VITALS: BP 143/76; PULSE 81; RESP 18; TEMP 36.6; O2SAT 98
[2024-10-12 09:55] LABS: POC Glucose,Bedside 312 (70-110)
[2024-10-12] MEDS: LACTATED RINGERS 1000ML 1,000 ML 100 ML IV (10:04)
[2024-10-12] MEDS: INSULIN HUMAN REGULAR 100 UNITS/ML 10ML VIAL 100 UNIT (10:21)
--- NOTE | 2024-10-12 10:33 | P.PNANES_ITS ---
[facility] Disclaimer: The information contained in this section may have been updated after the patient was seen, as this information can be updated by other users. Medical History GERD (gastroesophageal reflux disease) History of NV (myocardial infarction) Acute dysfunction of both eustachian tubes Bilateral serous otitis media Bilateral impacted cerumen Impacted cerumen Vertigo Gastroparesis Screening for prostate cancer Trigeminy Neuropathy Dizziness Light sensitivity Dysphagia Presence of external cardiac defibrillator Coronary artery disease Systolic heart failure Diabetic neuropathy Obstructive Sleep Apnea-Hypopnea Syndrome Hypertension Diabetes mellitus, type 2 Hypothyroidism Diabetes mellitus Surgical History History of esophagogastroduodenoscopy (EGD) History of colonoscopy Hx of CABG History of carpal tunnel release right Family History Father Cancer of liver cancer at the age of 62 Grandfather , colon cancer Cancer colon cancer; paternal grandfather Other Family history of myocardial infarction Social History (Updated 10/12/24 @ 09:54 by Jess Dias RN) Smoking Status: Former smoker tobacco type: cigarettes packs per day: 1 how long ago did patient quit smoking: January 2023 second hand exposure: No alcohol intake: never substance use type: denies use current occupational status: retired Travel in the last 8 weeks: None household members: spouse and children housing: house caffeine: No physical activity: walking do you feel safe at home: Yes victim of physical abuse: No victim of emotional abuse: No victim of sexual abuse: No would you like helpful sources: No Have you lived/traveled outside [place] in past 30 days?: No Contact w/someone who lives/traveled outside [place] past 30 days?: No Exposure to someone with infectious disease in past 14 days?: No Do you have a fever (greater than 100.4 F or 38 C)?: No Have you tested positive for COVID-19: Yes Exposed to someone with COVID-19 in past 14 days?: No Do you have a sore throat?: No Do you have a cough?: No Do you have any weakness?: No Are you experiencing any nausea/vomitting?: No Do you have any diarrhea?: No Are you experiencing any unusual bleeding?: No Do you have any muscle aches/pain?: No Do you have any abdominal pain?: No Are you experiencing loss of taste or smell?: No [facility] Anesthesia Checklist Patient Identification Patient Identification: Arm Band Structural Data Admitted From: Home Planned Operative Procedure/s: Left Carpal Tunnel Release Consent for Planned Operative Procedure(s) Verified: Yes Verified Documents: Surgical Consent and History and Physical NPO Status Verified Time NPO: 00:00 Additional verifications Anesthesia Reactions: No Hx Blood Transfusions: Yes Blood Transfusion Reaction: No Airway Assessment Mallampati Score:: Class II C-Spine Mobility Assessed: Yes TMJ Mobility Assessed: Yes Dentition: Good Dentition Neurological Assessment Level of Consciousness: Awake, Alert and Appropriate Anesthesia Plan Anesthesia Risk discussed: Yes Anesthesia Plan: Verified ASA Class: III Anesthesia Type: MAC
[2024-10-12 10:45] LABS: POC Glucose,Bedside 317 (70-110)
[2024-10-12] MEDS: CEFAZOLIN SODIUM 2 GM in 0.9 % SODIUM CHLORIDE 100 ML IV (11:00)
[2024-10-12] MEDS: BUPIVACAINE 0.5% W/EPI 1:200,000 30ML VIAL 30 ML IJ (11:22)
[2024-10-12 11:49] VITALS: BP 107/59; PULSE 91; RESP 16; TEMP 36.3; O2SAT 93
--- NOTE | 2024-10-12 11:51 | P.OP_ITS ---
Date of procedure: 10/12/24 Pre-op Diagnosis:: Left carpal tunnel syndrome Post-op Diagnosis:: Same Procedure performed:: Left endoscopic carpal tunnel release Surgeon:: Yo Diego DO Ophthalmic Medical Technologist(s):: Tab RUIZ ASSISTANT ADMINISTRATOR:: Fausto Ko Anesthesia: MAC and local Estimated blood loss (mL): 0 Operative findings:: See dictation Operative note:: Patient notified preoperatively. Left wrist marked with yes and my initials. Taken the operating room. Given sedation placed upon the lateral radiolucent table with a hand table. Left upper extremity was prepped and draped in normal sterile fashion. Once prepped and draped final operative timeout performed to identify proper patient procedure and extremity. Everyone involved in the case agreed. There were no counter indications to beginning. Did receive preoperative antibiotics. Marking pen was used to michelle plan incision over the volar wrist crease. Esmarch was used to exsanguinate the extremity pneumatic tourniquet inflated to 250 mmHg. Skin knife is used to incise through skin. Ragnell retractors were placed radial and ulnar side of the incision careful dissection was taken down to identify the most proximal aspect of the transverse carpal ligament once identified the smaller dilator followed by the larger dilator were placed into the carpal tunnel followed by the 4.0 mm sled from the segue endoscopic carpal tunnel release set. Once within the carpal tunnel transverse carpal ligament clearly seen superiorly within the camera a probe was used to identify the most distal aspect the transverse carpal ligament followed by a soft tissue rasp to remove the soft tissue from the undersurface of the transverse carpal ligament and then the hook blade from the segue endoscopic carpal tunnel release set was utilized for release of the transverse carpal ligament this was directly visualized. Irrigation wound performed. Skin closed with Monocryl stitch sterile hand dressing placed patient waken anesthesia taken recovery in stable condition. Condition: stable Disposition: PACU Complications:: None apparent
[2024-10-12 12:04] VITALS: BP 118/64; PULSE 89; RESP 16; O2SAT 95
[2024-10-12 12:19] VITALS: BP 124/70; PULSE 89; RESP 16; O2SAT 96
[2024-10-12 12:34] VITALS: BP 138/73; PULSE 82; RESP 16; O2SAT 97
[2024-10-12 12:40] VITALS: BP 154/80; PULSE 84; RESP 16; O2SAT 98
[2024-10-12 13:04] LABS: POC Glucose,Bedside 210 (70-110)
--- NOTE | 2024-10-12 13:29 | SUR.PHASEII ---
1200-Dr. mcdonald @ [facility]. No new orders received. Pt drinking water w/ @ [facility]. S. 1207-Blood sugar checked 312. Boo FINANCE CONSULTANT notified. No new orders received.
== END 2024-10-12 12:40 | disposition home or self-care (01) ==
PROVIDERS: PCP Physician Assistant; Visit Provider Orthopaedic Surgery
PROC: (CPT 64721; principal; 2024-10-12 11:15)
DX: G56.02 Carpal tunnel syndrome, left upper limb (principal)
CPT/HCPCS: 29848; 82962; 96374; J0690; J1100; J2250; J2405; J3010; J7120